=== PATIENT | female | born 1940 | race Caucasian/White ===

== ENCOUNTER → 2017-07-10 07:42 | Day surgery (SDC) | payer MEDICARE, OTHER, SELFPAY ==
[2017-07-07 09:23] VITALS: BMI 32.5
--- NOTE | 2017-07-10 09:51 | CL.IE_ITS ---
Patient: ZAHRA GRESHAM Study Date: 07/10/2017 Performing: Manish Rowland MD : 1940 Age: 77 Gender: female PROCEDURES PERFORMED [id number] OF LOOP RECORDER INDICATIONS Cryptogenic stroke PROCEDURE DETAILS The patient was brought to the Catheterization Lab in the postabsorptive nonsedated state. Informed consent was obtained prior to the procedure. . The patient tolerated the procedure well. Estimated Blood Loss: 0 ml's IMPLANTED / EX-PLANTED DEVICES IMPLANTED DEVICE(S): ICM Reveal LINQ - Millinery Salesperson: [employer], Model # [id number] Serial # [id number] DEVICE PARAMETERS CONCLUSIONS / RECOMMENDATIONS Device Conclusions: Successful implantation of a patient activated loop recorder. Device Recommendations: Follow up with Primary Care Physician PROCEDURE MEDICATIONS Versed 1 mg IV Oxygen: 2 L/min via nasal cannula Antibiotic given in appropriate timeframe. Ancef 1 Gm IV @ 07/10/2017 09:23:16 Signed By Manish Rowland MD On 07/10/2017 09:50:45 Manish Rowland MD
== END ==
PROVIDERS: Family Provider Internal Medicine; PCP Internal Medicine; Visit Provider Internal Medicine Cardiovascular Disease
DX: Z86.73 Personal history of transient ischemic attack (TIA), and cerebral infarction without residual deficits (principal); I10 Essential (primary) hypertension; E78.5 Hyperlipidemia, unspecified; Z79.84 Long term (current) use of oral hypoglycemic drugs; Z79.899 Other long term (current) drug therapy
CPT/HCPCS: 33282; 99152; J7040

== ENCOUNTER → 2017-11-30 09:53 | Outpatient (CLI) | payer MEDICARE, OTHER, SELFPAY ==
--- NOTE | 2017-11-30 09:58 | CDU_ITS ---
Reason For Study: Carotid stenosis Rt. Velocities/BP Lt. Velocities/BP Prox CCA 68.6/12.3 cm/sec. Prox CCA 59.2/12.3 cm/sec. Mid CCA 56.9/10.6 cm/sec. Mid CCA 57.5/13.5 cm/sec. Dist CCA 49.2/10.0 cm/sec. Dist CCA 52.2/12.3 cm/sec. Prox ICA 39.4/10.5 cm/sec. Prox ICA 53.4/15.8 cm/sec. Mid ICA 87.9/21.1 cm/sec. Mid ICA 65.1/17.6 cm/sec. Dist ICA 72.2/17.4 cm/sec. Dist ICA 57.2/15.0 cm/sec. Rt. ICA/CCA = 1.5. Lt. ICA/CCA = 1.1. Prox ECA 72.1/8.8 cm/sec. Prox ECA 63.9/8.2 cm/sec. Rt. Vert. 31.7/0.0 cm/sec. Lt. Vert. 30.6/8.3 cm/sec. Right Extracranial There is no significant atherosclerotic plaque noted in the right common carotid artery. There is heterogeneous, irregular atherosclerotic plaque noted in the right internal carotid artery. There is heterogeneous, irregular atherosclerotic plaque noted in the right external carotid artery. Antegrade flow is noted in the right vertebral artery. Left Extracranial There is intimal thickening but no significant atherosclerotic plaque noted in the left common carotid artery. There is intimal thickening but no significant atherosclerotic plaque noted in the left internal carotid artery. There is intimal thickening but no significant atherosclerotic plaque noted in the left external carotid artery. Antegrade flow is noted in the left vertebral artery. Procedure Carotid Duplex [id number]. Exam performed in department. Interpretation Summary Mild (<50%) stenosis right extracranial internal carotid. Mild (<50%) stenosis left extracranial internal carotid. Flow within the vertebral arteries is antegrade bilaterally. Ordering Physician: Sary Schmitt Referring Physician: Sary Schmitt Performed By: Isi Montano RVT
== END ==
PROVIDERS: Family Provider Internal Medicine; PCP Internal Medicine; Visit Provider Internal Medicine
DX: I65.23 Occlusion and stenosis of bilateral carotid arteries (principal)
CPT/HCPCS: 93880

== ENCOUNTER → 2018-04-27 14:27 | Outpatient (CLI) | payer MEDICARE, OTHER, SELFPAY ==
--- NOTE | 2018-04-27 14:31 | BI_ITS ---
MAMMOGRAPHY - BILATERAL SCREENING REASON FOR EXAM: Female, 77 years old. Routine annual screening examination. PERTINENT HISTORY: Sister with breast cancer. Grandmother with breast cancer. TECHNIQUE: Digital bilateral breast cezar (3D mammographic acquisition) in the CC and MLO projections. 2-D mediolateral oblique (MLO) and craniocaudad (CC) views of both breasts were obtained. CAD: Full Field Digital Mammography with Computer Added Detection was performed. COMPARISON: Comparison is made with prior study dated April 04, 2017 and December 31, 2015. FINDINGS: Breast Composition: The breasts are almost entirely fatty. There are no dominant masses or suspicious calcifications. Stable bilateral secretory calcifications. Stable bilateral small axillary lymph nodes. No other significant abnormalities are identified. There has been no significant change since the prior study. BI/SCREENING MAMM (CAD), BILAT IMPRESSION: Stable bilateral screening mammogram. Yearly follow-up mammogram recommended. (A) ASSESSMENT CATEGORY: BIRADS Category 2: Benign. A letter regarding these results will be sent to the patient by the facility within 30 days. Approximately 10% of breast cancers are not detected by mammography. A normal mammogram should not delay biopsy of a clinically suspicious abnormality. [id number] Electronically Signed: Cassius Cervantes MD at 13:50 EST Tel [phone], Service support ,
== END ==
PROVIDERS: Family Provider Internal Medicine; PCP Internal Medicine; Referring Provider Internal Medicine; Visit Provider Internal Medicine
DX: Z12.31 Encounter for screening mammogram for malignant neoplasm of breast (principal)
CPT/HCPCS: 77063; 77067

== ENCOUNTER → 2018-07-26 12:39 | Outpatient (CLI) | payer MEDICARE, OTHER, SELFPAY ==
--- NOTE | 2018-07-26 12:45 | BD_ITS ---
STUDY: DUAL ENERGY X-RAY ABSORPTIOMETRY / DXA REASON FOR EXAM: Female, 78 years old. The patient is postmenopausal. Loss of height. TECHNIQUE: Bone Mineral Density (BMD) measurements of lumbar spine and bilateral hips were obtained. COMPARISON: Comparison is made with prior study dated July 05, 2016. FINDINGS: Lumbar Spine (L1-L4): g/cm2 (1.283) / T-score (0.9) / Z-score (2.8) Findings are suggestive of normal bone density with a low fracture risk. Left Femur Total: g/cm2 (0.979) / T-score (-0.2) / Z-score (1.8) Left Femoral Neck: g/cm2 (0.820) / T-score (-1.6) / Z-score (0.6) Right Femur Total: g/cm2 (0.922) / T-score (-0.7) / Z-score (1.3) Right Femoral Neck: g/cm2 (0.7-0) / T-score (-2.3) / Z-score (-0.1) The T-Scores on the most recent prior examination were: Lumbar Spine (L1-L4): There has been improvement of bone density since the previous examination. Left Femur Total: which represents an improvement of 1.9%. Right Femur Total: which represents a worsening of 5.3%. BD/Dexa Bone Density Study IMPRESSION: The patient is considered osteopenic as outlined below according to World [employer] Organization (WHO) criteria with a moderate fracture risk. There has been improvement of bone density since the previous examination. Reference Information: The T-score is the number of standard deviations above or below the standard which is normal for young adults at their peak bone mineral density. The World Health Organization (WHO) interprets the T-scores as follows: Above -1 Normal bone density Between -1 and -2.5 Osteopenia Equal to / or below -2.5 Osteoporosis As a practical clinical guideline, osteopenia may be graded as follows: Mild -1 through -1.5 Moderate -1.6 through -2.0 Severe -2.1 through -2.4 The Z-score is the number of standard deviations above or below age-matched controls. A Z-score of less than -1.5 would be considered abnormal. References: 1. NIH Osteoporosis and Related Bone Diseases http://www.osteo.org 2. International Society for Clinical Densitometry http://www.iscd.org 3. National Osteoporosis Foundation http://www.nof.org Electronically Signed: Cassius Cervantes MD at 8:24 EST , Service support ,
--- NOTE | 2018-07-26 13:00 | RAD_ITS ---
STUDY: X-RAY - LEFT SHOULDER REASON FOR EXAM: Female, 78 years old. Chronic pain, no known injury TECHNIQUE: 4 view(s) of the shoulder. COMPARISON: None. FINDINGS: The bones are osteopenic. Normal glenohumeral articulation. Normal acromioclavicular joint. Normal acromion. Normal humeral head and visualized proximal humerus. The soft tissue structures are unremarkable. Normal visualized pulmonary apex. RAD/Shoulder min 2 Views IMPRESSION: Generalized osteopenia. The study is otherwise unremarkable. Electronically Signed: Garett Blanco MD at 23:58 EST , Service support ,
== END ==
PROVIDERS: Family Provider Internal Medicine; PCP Internal Medicine; Referring Provider Internal Medicine; Visit Provider Internal Medicine
DX: Z78.0 Asymptomatic menopausal state (principal)
CPT/HCPCS: 73030; 77080

== ENCOUNTER → 2018-12-07 | Outpatient (CLI) | payer MEDICARE, OTHER, SELFPAY ==
[2018-09-19 13:20] VITALS: BMI 32.3
--- NOTE | 2018-12-07 12:57 | CDU_ITS ---
Reason For Study: Carotid stenosis Rt. Velocities/BP Lt. Velocities/BP Prox CCA 64.3/10.8 cm/sec. Prox CCA 43.6/9.5 cm/sec. Mid CCA 48.6/13.4 cm/sec. Mid CCA 50/10.2 cm/sec. Dist CCA 45.4/9.1 cm/sec. Dist CCA 39.4/10.2 cm/sec. Prox ICA 47.6/11.3 cm/sec. Prox ICA 40.8/11.6 cm/sec. Mid ICA 60.8/15.7 cm/sec. Mid ICA 43.6/13.7 cm/sec. Dist ICA 78.3/25.6 cm/sec. Dist ICA 67.1/24.4 cm/sec. Rt. ICA/CCA = 1.6. Lt. ICA/CCA = 1.5. Prox ECA 59.7/8 cm/sec. Prox ECA 59.3/5.2 cm/sec. Rt. Vert. 28.9 cm/sec. Lt. Vert. 42.2/12.3 cm/sec. Right Extracranial There is homogeneous, smooth atherosclerotic plaque noted in the right common carotid artery. There is heterogeneous, irregular atherosclerotic plaque noted in the right internal carotid artery. There is heterogeneous, irregular atherosclerotic plaque noted in the right external carotid artery. Antegrade flow is noted in the right vertebral artery. Left Extracranial There is homogeneous, smooth atherosclerotic plaque noted in the left common carotid artery. There is intimal thickening but no significant atherosclerotic plaque noted in the left internal carotid artery. There is intimal thickening but no significant atherosclerotic plaque noted in the left external carotid artery. Antegrade flow is noted in the left vertebral artery. Procedure Carotid Duplex [id number]. Exam performed in department. Interpretation Summary Mild (<50%) stenosis right extracranial internal carotid. No significant atherosclerotic plaque or stenosis noted in the left internal carotid artery. Flow within the vertebral arteries is antegrade bilaterally. Ordering Physician: Sary Schmitt Referring Physician: Sary Schmitt Performed By: Deloris Delvalle RVT
== END | disposition home or self-care (01) ==
LOC: CVS 12:54
PROVIDERS: Family Provider Internal Medicine; PCP Internal Medicine; Referring Provider Internal Medicine; Visit Provider Internal Medicine
DX: I65.23 Occlusion and stenosis of bilateral carotid arteries (principal)
CPT/HCPCS: 93880

== ENCOUNTER → 2019-02-14 | Outpatient (CLI) | payer MEDICARE, OTHER, SELFPAY ==
[2018-09-19 13:20] VITALS: BMI 32.3
--- NOTE | 2019-02-14 12:33 | RAD_ITS ---
STUDY: X-RAY - RIGHT SHOULDER REASON FOR EXAM: Female, 78 years old. Pain. No known injury. TECHNIQUE: 3 view(s) of the shoulder. COMPARISON: None. FINDINGS: No visible fracture. No osseous destruction. Alignment anatomic. Mild degenerative changes. Soft tissues with no acute findings. Atherosclerosis. RAD/Shoulder min 2 Views IMPRESSION: No acute osseous abnormality. Mild degenerative changes. Electronically Signed: Garett Shelton, at 3:34 EDT Tel , Service support ,
== END | disposition home or self-care (01) ==
LOC: HPRAD 12:22
PROVIDERS: Family Provider Internal Medicine; PCP Internal Medicine; Referring Provider Internal Medicine; Visit Provider Internal Medicine
DX: M25.511 Pain in right shoulder (principal)
CPT/HCPCS: 73030

== ENCOUNTER → 2019-03-15 | Outpatient (CLI) | payer MEDICARE, OTHER, SELFPAY ==
[2018-09-19 13:20] VITALS: BMI 32.3
--- NOTE | 2019-03-15 13:00 | MRI_ITS ---
STUDY: MRI BRAIN WITH AND WITHOUT CONTRAST REASON FOR EXAM: Female, 78 years old. The patient presents with a history of dizziness and headaches x2 months with a history of a prior stroke. TECHNIQUE: Standardized multiplanar fat and water weighted pulse sequences were obtained. IV Dotarem 15 was administered for the contrast portion of the examination. COMPARISON: MRI BRAIN-November 10, 2016 FINDINGS: There is mild cerebral atrophy with widening of the extra-axial spaces and ventricular dilatation, unchanged as compared the prior examination of November 10, 2016. There are multiple white matter hyperintensities, distributed throughout the deep white matter tracts of the cerebral hemispheres, consistent with moderate chronic white matter ischemic changes, unchanged compared the prior examination of November 10, 2016. There is no evidence for recent intracranial ischemia or other cause of cytotoxic edema on diffusion weighted imaging (DWI). Normal T2* images of the brain without demonstrated susceptibility artifact. There is no demonstrated hemosiderin stain. There are prominent perivascular spaces (PVS) involving the basal ganglia. There is re-demonstration of a remote lacunar infarction left thalamus (axial T2 series 5, image 15). There is no extra-axial fluid accumulation. Normal flow voids within the major intracranial circulation suggesting patency by spin echo criteria. Normal venous enhancement. There is no enhancing intra-axial or extra-axial abnormality. Normal sella turcica, pituitary gland, infundibular stalk, optic chiasm and hypothalamus. Normal tectal plate and pineal gland. Normal midbrain, duong and medulla. There is encephalomalacia of the left cerebellar hemisphere consistent with a remote infarctions, unchanged as compared the prior examination. Normal basal cisterns. Normal bilateral temporal bones. Normal bilateral internal auditory canals. Remote lacunar infarction left thalamus. There are bilateral ocular lens implants with otherwise normal intraorbital contents. Normal visualized paranasal sinuses. Normal calvarium and skull base. Normal visualized soft tissue structures. Normal visualized upper cervical spine. MRI/Brain W/WO Contrast IMPRESSION: 1. Involutional changes of the brain, as described above. 2. No acute or evolving ischemic process. 3. Remote lacunar infarction left thalamus. 4. Cephalization left cerebellar hemisphere consistent with a remote infarction, unchanged as compared the prior examination of November 10, 2016. 5. Status post bilateral ocular lens implants. Electronically Signed: Javon Torres DO at 15:44 EDT Tel , Service support ,
[2019-03-15 13:10] LABS: CREATININE FINGERSTICK 1.3 mg/dL (0.55-1.02)
== END | disposition home or self-care (01) ==
LOC: MRI 12:06
PROVIDERS: Family Provider Internal Medicine; PCP Internal Medicine; Referring Provider Internal Medicine; Visit Provider Internal Medicine
DX: R42 Dizziness and giddiness (principal)
CPT/HCPCS: 70553; A9575

== ENCOUNTER 2019-03-21 13:30 | Outpatient (RCR) | payer MEDICARE, OTHER, SELFPAY ==
[2018-09-19 13:20] VITALS: BMI 32.3
--- NOTE | 2019-02-22 15:25 | HP.PTEVAL_ITS ---
Patient's Visit Information ZAHRA GRESHAM is a 78 year old F referred to Physical Therapy by Jes Diaz MD with a diagnosis of R shoulder pain. Date of Evaluation: 02/22/19 Physical Therapist: Nadeem Hodges, REGGIE, OCS, CSCS - Visit Plan Frequency: 1x/Week Duration: 2-4 Weeks Plan: weekly x 2-4 weeks to progress HEP, next session to phase 3 strengthening via HEP. - Subjective Findings: R shoulder pain. X ray showed OA. It was hurting very bad and had been for 3 weeks insidiously. Unknown reason. Pain is down upper right arm. Was hard to lift and tender. Reaching behind was hard. Always had slight strain in R UE off and on. Trouble hooking bra intermittently but then worse. This was more sever and did not clear up. Has had tingling and numbness in R arm for years possibly carpal tunnel. She did get injection from doctor last week and it did take, after 4 days, the upper arm pain away. It helped 100%. Sleeping now is Ok since injection. Did sleep in chair several nights when it was hurting. No other treatments, had x ray. Is R handed. Not employed. Spends day taking care of 11 month old baby and 5 yo and can do those now although it was hard to lift before injection. Basic ADLs OK now. - Pain R shoulder Pain Intensity (Out of 10): 0 Pain Intensity Range: 0, 2 Comment: not bad lately. - Objective Posture is forward scap adn R depressed scap vs L. Tightness evident in pecs. Tender to touch R supraspinatus and really joint surface anterior adn posterior of g-h joint. Shoulder AROM is symmetrical except end range R shoulder flexion slightly limited adn not painful. Rotations internal and external are symmetrical and without pain today. reflexes 2/3 bi and tri B. Sensation UE WNL to gross light touch today. Strength 3+/5 in B shoulders , elbows and wrists without pain today. - HK, - neer, - ext rotation lag,. Neck aROM symmetrical and withotu pain today. Scap ROM fair with defictis B in retraction and depression. - Goals Goal 1:: I appropr HEP to minimize future problems Goal Time Frame: 2-4 Weeks - Rehabilitation Potential Physical Therapy Diagnosis: R shoulder pain likely arthritic in nature, resolved Rehabilitation Potential: Fair - Anticipated Interventions Patient/Client Instruction: Educate patient on: Condition, Plan of Care For the Purpose of:: To decrease pain, To increase tolerance to activity/condition/position, To improve health and function Therapeutic Exercise to Include: Strength training, Flexibilty training For the Purpose of:: To increase tolerance to activity/condition/position, To improve health and function Thank you for the opportunity to evaluate your patient. For Medicare and Medicare HMO plans, please review the plan of care and approve it. It will need to be FAXED BACK to us at [phone] for Medicare purposes. For Medicare only, by signing this I certify the plan of care. Please let me know if there are questions or concerns regarding this plan of care. Physician Signature: Date:
--- NOTE | 2019-03-21 13:44 | HP.PTDCSUM ---
HP - PT D/C Summary It has been my pleasure to treat ZAHRA GRESHAM under orders from Jes Diaz MD, for the diagnosis of R shoulder pain for a total of 3 visit(s). Discharge Date: 03/21/19 Please see the following information for a summary of their discharge status. - Subjective Subjective: I am doing the ex but not as often as I should. Shoulder is not causing any problem. Not avoiding any activities due to shoulder. - Pain R shoulder Pain Intensity (Out of 10): 0 - Overall Improvement % Improvement: 99 - Objective Objective/Function: full aROM B shoulders today without pain. Strength in er/ir/flex/abd symmetrical adn without pain today. Overall doing well and I with HEP when compliant. - Goals Goal 1:: I appropr HEP to minimize future problems Goal Progress: Goal Met - Plan Plan: d/c - D/C Information Discharge Comments: Pt doing well adn I with HEP and will continue I. If there are questions or concerns regarding this patient's physical therapy, please feel free to call me at [phone]. Thank you for the referral of this patient. Sincerely, Nadeem Hodges, DPT, OCS, CSCS
== END 2019-03-21 19:00 | disposition home or self-care (01) ==
LOC: PT 13:30
PROVIDERS: Family Provider Internal Medicine; PCP Internal Medicine; Referring Provider Internal Medicine; Visit Provider Internal Medicine
DX: M25.511 Pain in right shoulder (principal)
CPT/HCPCS: 97110; 97162; 97530

== ENCOUNTER → 2019-04-29 | Outpatient (CLI) | payer MEDICARE, OTHER, SELFPAY ==
[2018-09-19 13:20] VITALS: BMI 32.3
--- NOTE | 2019-04-29 12:04 | BI_ITS ---
MAMMOGRAPHY - BILATERAL SCREENING REASON FOR EXAM: Female, 78 years old. Routine annual screening examination. PERTINENT HISTORY: Sister with breast cancer. Grandmother with breast cancer. TECHNIQUE: Digital bilateral breast rashaad (3D mammographic acquisition) in the CC and MLO projections. 2-D mediolateral oblique (MLO) and craniocaudad (CC) views of both breasts were obtained. CAD: Full Field Digital Mammography with Computer Added Detection was performed. COMPARISON: Comparison is made with prior study dated April 27, 2018 and April 04, 2017. FINDINGS: Breast Composition: The breasts are almost entirely fatty. There are no dominant masses or suspicious calcifications. Stable secretory calcifications in both breasts. Stable small bilateral benign-appearing axillary lymph nodes. A loop recorder device is once again seen along the inferior medial aspect of the left breast. No other significant abnormalities are identified. There has been no significant change since the prior study. BI/SCREEN MAMM (CAD) W/RASHAAD BILAT IMPRESSION: Stable bilateral screening mammogram. Yearly follow-up mammogram recommended. (A) ASSESSMENT CATEGORY: BIRADS Category 2: Benign. A letter regarding these results will be sent to the patient by the facility within 30 days. Approximately 10% of breast cancers are not detected by mammography. A normal mammogram should not delay biopsy of a clinically suspicious abnormality. [id number] Electronically Signed: Cassius Cervantes, at 14:31 EST , Service support ,
== END | disposition home or self-care (01) ==
LOC: OPBI 11:52
PROVIDERS: Family Provider Internal Medicine; PCP Internal Medicine; Referring Provider Internal Medicine; Visit Provider Internal Medicine
DX: Z12.31 Encounter for screening mammogram for malignant neoplasm of breast (principal)
CPT/HCPCS: 77063; 77067

== ENCOUNTER → 2019-10-16 13:40 | Outpatient (CLI) | payer MEDICARE, OTHER, SELFPAY ==
[2019-09-24 11:00] VITALS: BMI 30.9
--- NOTE | 2019-10-16 13:41 | ECHOCS_ITS ---
Reason For Study: ARRHYTHMIA Procedure This was a 2D Doppler, Color Flow transthoracic echocardiogram. The study was technically difficult. Contrast injection was performed. Exam performed in department. Left Ventricle Normal LV size. Left ventricular systolic function is normal. The estimated ejection fraction is 65 %. Diastolic function is indeterminate. No regional wall motion abnormalities noted. Right Ventricle Normal RV size. Normal systolic function. Atria The left atrium is severely enlarged. Normal right atrium. No doppler evidence for ASD. Mitral Valve There is severe mitral annular calcification. Extension of the mitral annular calcification onto the posterior mitral valve leaflet. The mitral papillary muscle appears thickened and/or calcified. Mild (1+) mitral valve insufficiency. Tricuspid Valve Normal tricuspid valve. Mild to moderate (1-2+) eccentric tricuspid valve insufficiency. Right ventricular systolic pressure estimated to be 33 mmHg. Aortic Valve Trisinus/trileaflet aortic valve. Mild focal aortic valve calcification. Pulmonic Valve Normal pulmonic valve. Mild (1+) pulmonic valve insufficiency. Great Vessels Normal sized aortic root. Calcified aortic root. Pericardium/Pleural No pericardial effusion. Medication 22 gauge I.V. with prn adaptor inserted into right arm. Diluted definity 2.0ml given slow IV push to enhance endocardial definition. MMode/2D Measurements & Calculations LVIDd: 3.3 cm IVSd: 0.85 cm Ao root diam: 2.6 cm LVIDs: 2.3 cm LVPWd: 1.0 cm RVDd: 3.2 cm FS: 31.4 % LAV(MOD-bp): 39.8 ml LVAd ap4: 18.8 cm2 SV(MOD-sp4): 33.6 ml LAV(MOD-bp) Indexed: 24.5 ml/m2 EDV(MOD-sp4): 49.5 ml LAV(MOD-sp2): 37.8 ml EDV(sp4-el): 51.8 ml LAV(MOD-sp4): 39.1 ml LVAs ap4: 8.7 cm2 ESV(MOD-sp4): 15.8 ml ESV(sp4-el): 15.0 ml EF(MOD-sp4): 68.0 % EF(sp4-el): 71.1 % SV(sp4-el): 36.8 ml LA A4 area: 15.8 cm2 LA dimension(2D): 3.1 cm RA A4 area: 12.3 cm2 Doppler Measurements & Calculations MV E max benito: 118.6 cm/sec Lat Peak E' Benito: 4.1 cm/sec Med Peak E' Benito: 4.5 cm/sec MV A max benito: 166.3 cm/sec E/E' lat: 28.7 E/E' med: 26.3 MV E/A: 0.71 MV V2 max: 169.1 cm/sec Ao V2 max: 128.2 cm/sec LV V1 max: 102.7 cm/sec MV max P.4 mmHg Ao max P.6 mmHg LV V1 max P.2 mmHg MV V2 mean: 88.0 cm/sec MV mean P.7 mmHg MV V2 VTI: 41.0 cm PA V2 max: 82.2 cm/sec TR max benito: 274.8 cm/sec MV P1/2t-pr_phl: 89.7 msec TR max P.2 mmHg Interpretation Summary The study was technically difficult. Contrast injection was performed. Left ventricular systolic function is normal. The estimated ejection fraction is 65 %. The left atrium is severely enlarged. There is severe mitral annular calcification. Extension of the mitral annular calcification onto the posterior mitral valve leaflet. The mitral papillary muscle appears thickened and/or calcified. Mild (1+) mitral valve insufficiency. Mild to moderate (1-2+) eccentric tricuspid valve insufficiency. Mild focal aortic valve calcification. Mild (1+) pulmonic valve insufficiency. Calcified aortic root. Right ventricular systolic pressure estimated to be 33 mmHg. Diastolic function is indeterminate. Ordering Physician: Michael Tabares Referring Physician: ROBERT VELAZQUEZ Performed By: Omaira Soriano, PRATEEKCS, RVT
== END ==
PROVIDERS: PCP Internal Medicine; Referring Provider Internal Medicine Cardiovascular Disease; Visit Provider Internal Medicine Cardiovascular Disease
DX: G45.9 Transient cerebral ischemic attack, unspecified (principal); I47.1 Supraventricular tachycardia; I34.0 Nonrheumatic mitral (valve) insufficiency; I36.1 Nonrheumatic tricuspid (valve) insufficiency; E78.00 Pure hypercholesterolemia, unspecified; I10 Essential (primary) hypertension; Z95.818 Presence of other cardiac implants and grafts
CPT/HCPCS: 93306; Q9957; A4216; C8929

== ENCOUNTER → 2019-12-25 12:49 | Outpatient (CLI) | payer MEDICARE, OTHER, SELFPAY ==
[2019-11-11 13:08] VITALS: BMI 32.0
--- NOTE | 2019-12-25 12:58 | CDU_ITS ---
Reason For Study: Carotid stenosis Rt. Velocities/BP Lt. Velocities/BP Prox CCA 69.5/13.5 cm/sec. Prox CCA 68.3/14.5 cm/sec. Mid CCA 53.9/16 cm/sec. Mid CCA 52.2/12.6 cm/sec. Dist CCA 45.4/11.3 cm/sec. Dist CCA 48.5/11.6 cm/sec. Prox ICA 57.5/13.5 cm/sec. Prox ICA 74.9/14.5 cm/sec. Mid ICA 78.4/30 cm/sec. Mid ICA 50.4/20.1 cm/sec. Dist ICA 88.8/28.6 cm/sec. Dist ICA 77.2/30 cm/sec. Rt. ICA/CCA = 1.6. Lt. ICA/CCA = 1.5. Prox ECA 68.4 cm/sec. Prox ECA 72.1/12.6 cm/sec. Rt. Vert. 25.8 cm/sec. Lt. Vert. 27.3/12.3 cm/sec. Right Extracranial There is homogeneous, smooth atherosclerotic plaque noted in the right common carotid artery. There is heterogeneous, irregular atherosclerotic plaque noted in the right internal carotid artery. There is heterogeneous, irregular atherosclerotic plaque noted in the right external carotid artery. Antegrade flow is noted in the right vertebral artery. High resistive waveform noted in the right vertebral artery. Left Extracranial There is homogeneous, smooth atherosclerotic plaque noted in the left common carotid artery. There is heterogeneous, irregular atherosclerotic plaque noted in the left internal carotid artery. There is intimal thickening but no significant atherosclerotic plaque noted in the left external carotid artery. Antegrade flow is noted in the left vertebral artery. Procedure Carotid Duplex [id number]. Exam performed in department. Interpretation Summary Mild (<50%) stenosis right extracranial internal carotid. Mild (<50%) stenosis left extracranial internal carotid. Flow within the vertebral arteries is antegrade bilaterally. A high-resistance waveform is noted in the right vertebral artery, which may be indicative of stenosis or occlusion more distally. Clinical correlation is advised. Ordering Physician: Sary Schmitt Referring Physician: Sary Schmitt Performed By: Deloris Delvalle RVT
== END ==
PROVIDERS: PCP Internal Medicine; Referring Provider Internal Medicine; Visit Provider Internal Medicine
DX: I65.23 Occlusion and stenosis of bilateral carotid arteries (principal)
CPT/HCPCS: 93880

== ENCOUNTER → 2020-01-21 15:25 | Outpatient (CLI) | payer MEDICARE, OTHER, SELFPAY ==
[2019-11-11 13:08] VITALS: BMI 32.0
--- NOTE | 2020-01-21 15:26 | CT_ITS ---
STUDY: CTA NECK WITH CONTRAST REASON FOR EXAM: Female, 79 years old. ABN DOPPLER ULTRASOUND, LIGHTHEADED, HX-EMBOLYTIC STROKE, HTN,DB RADIATION DOSAGE (If Supplied By Facility): CTDIvol = ( 16.57 ) mGy, DLP = ( 492.01 ) mGycm TECHNIQUE: CT angiography with multi-detector data acquisition was performed from the aortic arch to the skull base following intravenous administration of 100ML ISOVUE 370. MIP images were reconstructed from the axial data set. Post-processing of the angiographic images was performed, with multiplanar reformation and 3D reconstruction. Individualized dose optimization techniques were used for this CT. COMPARISON: Carotid ultrasound 12/25/2019. FINDINGS: AORTIC ARCH: Normal visualized aortic arch. Normal origins of the brachiocephalic, left common carotid, and left subclavian arteries. RIGHT CAROTID ARTERIES: Normal right common carotid artery (CCA). There is mild atherosclerotic plaque formation with minimal narrowing of the right carotid bulb. There is mild atherosclerotic plaque formation of the origin of the right internal carotid artery with less than 50% cross sectional diameter stenosis. Normal visualized cervical portion of the right internal carotid artery. Normal origin of the right external carotid artery (ECA). LEFT CAROTID ARTERIES: Normal left common carotid artery (CCA). Normal left common carotid bulb. Normal origin of the left internal carotid (ICA) artery without a hemodynamically significant stenosis. Normal visualized cervical portion of the left internal carotid artery. Normal origin of the left external carotid artery (ECA). VERTEBRAL ARTERIES: There is enhancement within the bilateral vertebral arteries with a small right vertebral artery, and a dominant left vertebral artery. CT/CTA Neck W/WO Contrast IMPRESSION: Unremarkable for age. No occlusions. No evidence for hemodynamically significant stenosis. Electronically Signed: Oliver Martinez MD at 20:12 EDT , Service support ,
[2020-01-21 15:41] LABS: CREATININE FINGERSTICK 1.5 mg/dL (0.55-1.02)
== END ==
PROVIDERS: PCP Internal Medicine; Referring Provider Internal Medicine; Visit Provider Internal Medicine
DX: R93.89 Abnormal findings on diagnostic imaging of other specified body structures (principal)
CPT/HCPCS: 70498; Q9967

== ENCOUNTER → 2020-04-30 14:29 | Outpatient (CLI) | payer MEDICARE, OTHER, SELFPAY ==
[2019-11-11 13:08] VITALS: BMI 32.0
--- NOTE | 2020-04-30 14:32 | BI_ITS ---
MAMMOGRAPHY - BILATERAL SCREENING REASON FOR EXAM: Female, 79 years old. Routine annual screening examination. PERTINENT HISTORY: Sister with breast cancer. Grandmother with breast cancer. TECHNIQUE: Digital bilateral breast rashaad (3D mammographic acquisition) in the CC and MLO projections. 2-D mediolateral oblique (MLO) and craniocaudad (CC) views of both breasts were obtained. CAD: Full Field Digital Mammography with Computer Added Detection was performed. COMPARISON: Comparison is made with prior study dated 04/29/2019 and 04/27/2018. FINDINGS: Breast Composition: The breasts are almost entirely fatty. There are no dominant masses or suspicious calcifications. Stable secretory calcifications in both breasts. Stable small benign appearing bilateral axillary nodes. No other significant abnormalities are identified. There has been no significant change since the prior study. BI/SCREEN MAMM (CAD) W/RASHAAD BILAT IMPRESSION: Stable bilateral screening mammogram. Yearly follow-up mammogram recommended. (A) ASSESSMENT CATEGORY: BIRADS Category 2: Benign. A letter regarding these results will be sent to the patient by the facility within 30 days. Approximately 10% of breast cancers are not detected by mammography. A normal mammogram should not delay biopsy of a clinically suspicious abnormality. [id number] Electronically Signed: Cassius Cervantes, at 15:32 EST , Service support ,
== END ==
PROVIDERS: PCP Internal Medicine; Referring Provider Internal Medicine; Visit Provider Internal Medicine
DX: Z12.31 Encounter for screening mammogram for malignant neoplasm of breast (principal); M25.551 Pain in right hip
CPT/HCPCS: 77063; 77067; 97110

== ENCOUNTER 2020-05-21 14:00 | Outpatient (RCR) | payer MEDICARE, OTHER, SELFPAY ==
[2019-11-11 13:08] VITALS: BMI 32.0
--- NOTE | 2020-04-23 13:50 | HP.PTEVAL_ITS ---
Patient's Visit Information ZAHRA GRESHAM is a 79 year old F referred to Physical Therapy by Dr. Sary Schmitt DO with a diagnosis of Left Hip Pain. Date of Evaluation: 04/23/20 Physical Therapist: Mariluz Zafar DPT - Visit Plan Frequency: 2x /Week Duration: 4 Weeks Plan: Focus on core strength/stabilization with functional mobility- PACEMAKER - Subjective Left hip pain- that bothers her all the time- aggravated when she worked the [employer] last week- she was standing in one spot for a long period of time. She ached all over- was still moving around- she is really bothered when she was standing making a casserole. By evening her whole left his was bothering her- it continued to get worse. On she would hardly move- very painful to do anything. She was having to use a cane to get to the bathroom. She sat on the couch and slept there for 2 nights. It has gradually gotten better and she back to most of her normal activities with modifications. But sleeping is not fun- she is having a hard time laying on either side- rolling side to side is the most difficult thing. Wakes her up due to pain. 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 Has not had recent x-rays. Dr. Schmitt did not suggest x-rays. Feels that she is back to 50% of the pain levels. Pain is located in the greater troch into the gluts and on the left lumbar spine- No radiating pain- describes sharp and shooting pains-no N/T. Does report lumbar spine pain when standing and bruno in the kitchen- goes and sits down and the next day she is good to go again. No x-rays on her lumbar spine. Agg:rolling over in bed, twisting back to wipe herself- is very careful of how she moves. Eases: rest. No loss or change in bowel or bladder. No buckling of the knee or concerns that she would fall to the floor. Does not exercise but she is active around her home- fully I prior to injury. PMHX/Meds: not taking Lisinopril since at the hospital last visit with Dr. Tabares. - Objective Posture: FH, RS- can correct but does not maintain. Gait: slightly antalgic- decreased stance on the left LE. Stairs: asc/desc 8 non recip with 1 HR. HR/TR: WNL. Sensation: WFL to gross touch bilateral. ROM: Lumbar: flexion: hands to ankle, extn: neutral, SB: pain with left, Rotation: pain with right, Hip WFL in all planes, Knee/Ankle: WNL. Strength:Core: poor, Hip: flexion:4/5, extn: 4+/5, IR/ER: 4-/5, Abd: 4/5, Add: 4/5, knee: 5/5, ankle: 5/5. Flex: HS: moderate, Gastroc: moderate. Special Test: Scour: positive, ALESHA: positive, LLD: negative - Goals Goal 1:: Patient will be I with HEP and progression Goal Time Frame: 4-6 Weeks Goal 2:: Patient will maintain proper posture t/o tx session to demo increased core s/s Goal Time Frame: 4-6 Weeks Goal 3:: Patient will report with 0/10 pain for 1 week Goal Time Frame: 4-6 Weeks - Rehabilitation Potential Physical Therapy Diagnosis: Patient presents with hypomobility- she has decreased ROM, strength, flex and muscular enduranc leading to poor posture and increased pain with ADl's. Rehabilitation Potential: Good - Anticipated Interventions Patient/Client Instruction: Educate patient on: Benefits of Fitness Program Therapeutic Exercise to Include: Strength training, Endurance training, Balance training, Agility training, Body mechanics, Postural training, Flexibilty training, Gait and locomotor training, Neuromotor development, Passive ROM, Active ROM, Dynamic Lumbar Stabilization, Scapular Strength/Stabilization For the Purpose of:: To improve muscle performance and motor function TENS: No Cryotherapy (ice pack, ice massage): Yes Thermo therapy (hot pack): Yes Ultrasound (thermal/non thermal): No Thank you for the opportunity to evaluate your patient. For Medicare and Medicare HMO plans, please review the plan of care and approve it. It will need to be FAXED BACK to us at [phone] for Medicare purposes. For Medicare only, by signing this I certify the plan of care. Please let me know if there are questions or concerns regarding this plan of care. Physician Signature: Date:
--- NOTE | 2020-05-21 16:00 | HP.PTDCSUM ---
It has been my pleasure to treat ZAHRA GRESHAM referred by Dr. Sary Schmitt DO, with the diagnosis of Left Hip Pain for a total of 7 visit(s). Discharge Date: Please see the following information for a summary of their discharge status. Subjective: Patient reports that her hip is a lot better since she started PT. She feels that she is back to her baseline prior to the episode. She always feels the pain- its more the arthritis. If she sits for a long time she then has to wait for a few minutes then can go. She did a lot of standing in the kitchen the past few days. She is back in her bed and can sleep on her side. But she does have pain with she rolls over in the AM- 100% back to normal. % Improvement: 100 Objective/Function: Posture: good sitting posture. Gait: no deviation noted. Stairs: asc/desc 8recip with 1 HR. HR/TR: WNL. Sensation: WFL to gross touch bilateral. ROM: Lumbar: flexion: hands to ankle, extn: neutral, SB: pain with left, Rotation: pain with right, Hip WFL in all planes, Knee/Ankle: WNL. Strength:Core: fair Hip: flexion:4+/5, extn: 4+/5, IR/ER: 4/5, Abd: 4+/5, Add: 4/5, knee: 5/5, ankle: 5/5. Flex: HS: moderate, Gastroc: moderate. Special Test: Scour: positive, ALESHA: positive, LLD: negative Goal 1:: Patient will be I with HEP and progression Goal Progress: Goal Met Goal 2:: Patient will maintain proper posture t/o tx session to demo increased core s/s Goal Progress: Progressing Goal 3:: Patient will report with 0/10 pain for 1 week Goal Progress: Progressing Plan: Discharge to I HEP- encourage to call if she has questions or concerns If there are questions or concerns regarding this patient's physical therapy, please feel free to call me at [phone]. Thank you for the referral of this patient. Sincerely, Mariluz Zafar DPT
== END 2020-05-21 19:00 | disposition home or self-care (01) ==
LOC: PT 14:00
PROVIDERS: PCP Internal Medicine; Referring Provider Internal Medicine; Visit Provider Internal Medicine
DX: M25.551 Pain in right hip (principal); M25.552 Pain in left hip
CPT/HCPCS: 97110; 97162; 97164

== ENCOUNTER → 2020-10-22 12:58 | Outpatient (CLI) | payer MEDICARE, OTHER, SELFPAY ==
[2019-11-11 13:08] VITALS: BMI 32.0
--- NOTE | 2020-10-22 13:02 | BD_ITS ---
STUDY: DUAL ENERGY X-RAY ABSORPTIOMETRY / DXA REASON FOR EXAM: Female, 80 years old. [id number]. The patient is postmenopausal. Loss of height. TECHNIQUE: Bone Mineral Density (BMD) measurements of lumbar spine and bilateral hips were obtained. COMPARISON: Comparison is made with prior study dated 05/12/2010. FINDINGS: Lumbar Spine (L1-L4): g/cm2 (1.330) / T-score (1.2) / Z-score (3.1) Findings are suggestive of normal bone density with a low fracture risk. Left Femur Total: g/cm2 (0.904) / T-score (-0.8) / Z-score (1.3) Left Femoral Neck: g/cm2 (0.751) / T-score (-2.1) / Z-score (0.2) Right Femur Total: g/cm2 (0.899) / T-score (-0.9) / Z-score (1.3) Right Femoral Neck: g/cm2 (0.736) / T-score (-2.2) / Z-score (0.1) The T-Scores on the most recent prior examination were: Lumbar Spine (L1-L4): There has been improvement of bone density since the previous examination. Left Femur Total: which represents a worsening of 7.7%. Right Femur Total: which represents a worsening of 2.5%. BD/Dexa Bone Density Study IMPRESSION: The patient is considered osteopenic as outlined below according to World [employer] Organization (WHO) criteria with a high fracture risk. There has been worsening of bone density since the previous examination. Reference Information: The T-score is the number of standard deviations above or below the standard which is normal for young adults at their peak bone mineral density. The World Health Organization (WHO) interprets the T-scores as follows: Above -1 Normal bone density Between -1 and -2.5 Osteopenia Equal to / or below -2.5 Osteoporosis As a practical clinical guideline, osteopenia may be graded as follows: Mild -1 through -1.5 Moderate -1.6 through -2.0 Severe -2.1 through -2.4 The Z-score is the number of standard deviations above or below age-matched controls. A Z-score of less than -1.5 would be considered abnormal. References: 1. NIH Osteoporosis and Related Bone Diseases www osteo.org 2. International Society for Clinical Densitometry www iscd.org 3. National Osteoporosis Foundation www nof.org Electronically Signed: Cassius Cervantes MD at 15:31 EDT , Service support ,
== END ==
PROVIDERS: PCP Internal Medicine; Referring Provider Internal Medicine; Visit Provider Internal Medicine
DX: Z78.0 Asymptomatic menopausal state (principal)
CPT/HCPCS: 77080

== ENCOUNTER → 2021-05-03 14:01 | Outpatient (CLI) | payer MEDICARE, OTHER, SELFPAY ==
--- NOTE | 2021-05-03 14:03 | BI_ITS ---
MAMMOGRAPHY - BILATERAL SCREENING 3-D TOMOSYNTHESIS REASON FOR EXAM: Female, 80 years old. SCREENING PERTINENT HISTORY: Sister and grandmother with breast cancer.. TECHNIQUE: 2-D mammograms and 3-D Tomosynthesis of the breast (s) were performed. CAD was performed. COMPARISON: 06/30/2019 FINDINGS: The breast composition is almost entirely fat. Scattered benign calcifications are seen. No dense spiculated masses or suspicious microcalcifications are identified. No architectural distortion is identified. There is no skin thickening or retraction. Stable bilateral subcentimeter axillary lymph nodes. There has been no significant change since the prior study. BI/SCRN MAMM (CAD)W/RASHAAD BILAT IMPRESSION: No mammographic signs of malignancy. Routine yearly mammograms recommended. ASSESSMENT CATEGORY: BIRADS Category 2: Benign. A letter regarding these results will be sent to the patient by the facility within 30 days. FOLLOW UP RECOMMENDATION: Yearly follow up mammogram recommended. (A) Approximately 10% of breast cancers are not detected by mammography. A normal mammogram should not delay biopsy of a clinically suspicious abnormality. Electronically Signed: Frank Erickson MD at 17:24 EST , Service support ,
== END ==
PROVIDERS: PCP Internal Medicine; Referring Provider Internal Medicine; Visit Provider Internal Medicine
DX: Z12.31 Encounter for screening mammogram for malignant neoplasm of breast (principal)
CPT/HCPCS: 77063; 77067

== ENCOUNTER → 2021-05-10 07:07 | Outpatient (CLI) | payer MEDICARE, OTHER, SELFPAY ==
--- NOTE | 2021-05-10 09:23 | STRESSREP ---
Stress Test Report Date: 05-10-2021 Procedure: Exercise tolerance test/imaging study Indications: Shortness of breath/dyspnea on exertion Consent: Per the patient Procedure: The patient exercised on a Yousuf protocol for 5 minutes completing Stage II and 2 minutes of Stage III achieving a peak heart rate of 133 bpm (97% predicted maximal heart rate) with a peak blood pressure 158/70 mmHg and a peak MET capacity of 7 METs. The baseline ECG demonstrated sinus rhythm; nonspecific T wave abnormality. The peak exercise ECG demonstrated somatic/motion artifact with no obvious ECG changes. [There were no cardiac dysrhythmias pretest, during exercise, or recovery]. The functional capacity was considered good. There was [no complaint of chest discomfort during exercise or recovery]. The examination was discontinued secondary to dyspnea. Impression: 1. Technically adequate (percent predicted maximal heart rate greater than 85%) exercise tolerance test 2. Peak exercise ECG with somatic/motion artifact with no obvious ECG changes 3. [There were no cardiac dysrhythmias pretest, during exercise, or recovery] 4. Nuclear images pending Myocardial perfusion imaging study: Technique: The patient was injected with 11.7 mCi of technetium 99m Cardiolite and subsequently rest SPECT Cardiolite nuclear imaging was obtained in the horizontal long, vertical long, and short axis views. The patient exercised on a Yousuf protocol for 5 minutes completing Stage II and 2 minutes of Stage III achieving a peak heart rate of 133 bpm (97% predicted maximal heart rate) with a peak blood pressure 158/70 mmHg and a peak MET capacity of 7 METs. The patient was injected with 33.1 mCi of technetium 99m Cardiolite and subsequently stress SPECT Cardiolite nuclear imaging was obtained in the horizontal long, vertical long, and short axis views. A gated Cardiolite study at peak stress was obtained. Interpretation: Rest and stress SPECT Cardiolite nuclear imaging status post realignment, normalization, and attenuation correction, demonstrates []. [There is end systolic thickening and brightening]. The gated Cardiolite study demonstrates [myocardial thickening and inward wall motion]. The reported LVEF is []%. Impression: 1. Rest and stress SPECT Cardiolite nuclear imaging demonstrate []. 2. The gated Cardiolite study reports an LVEF of []%. This note was generated with [employer] software. It may contain incorrect words, spelling, and punctuation that were not noted in checking the note before signing.
== END ==
PROVIDERS: PCP Internal Medicine; Referring Provider Internal Medicine; Visit Provider Internal Medicine
DX: R06.00 Dyspnea, unspecified (principal)
CPT/HCPCS: 78452; 93017; A9500; A4216

== ENCOUNTER 2021-06-14 13:00 | Outpatient (CLI) | payer MEDICARE, OTHER, SELFPAY ==
--- NOTE | 2021-06-14 13:16 | ECHOCS_ITS ---
Reason For Study: Murmur Procedure This was a 2D Doppler, Color Flow transthoracic echocardiogram. Techncially difficult due to patients body habitus. Contrast injection performed. The study was technically difficult. Contrast injection was performed. Exam performed in department. Left Ventricle Normal LV size. Left ventricular systolic function is hyperdynamic. The estimated ejection fraction is 75 %. There is evidence of diastolic dysfunction. No regional wall motion abnormalities noted. Right Ventricle Normal RV size. Normal systolic function. Atria The left atrium is severely enlarged. The right atrium is mildly enlarged. No doppler evidence for ASD. Mitral Valve There is severe mitral annular calcification. Extension of the mitral annular calcification onto the mitral valve leaflets. The mitral valve chordae are thickened and/or calcified. Mild (1+) mitral valve insufficiency. Tricuspid Valve Normal tricuspid valve. Mild to moderate (1-2+) eccentric tricuspid valve insufficiency. Right ventricular systolic pressure estimated to be 36 mmHg. Aortic Valve Trisinus/trileaflet aortic valve. Mild focal aortic valve calcification. Pulmonic Valve The pulmonic valve is not well visualized. Mild (1+) pulmonic valve insufficiency. Great Vessels The aortic root is not well visualized. Pericardium/Pleural No pericardial effusion. Medication 22 gauge I.V. with prn adaptor inserted into left arm. Diluted definity 3ml given slow IV push to enhance endocardial definition. MMode/2D Measurements & Calculations LVIDd: 3.2 cm IVSd: 1.1 cm LA dimension: 2.7 cm LVIDs: 2.5 cm LVPWd: 1.0 cm FS: 22.0 % LAV(MOD-bp): 62.0 ml LA A4 area: 20.2 cm2 RA A4 area: 16.9 cm2 LAV(MOD-bp) Indexed: 38.5 ml/m2 LAV(MOD-sp2): 58.4 ml LAV(MOD-sp4): 61.7 ml Time Measurements MV dec time: 0.30 sec Doppler Measurements & Calculations MV E max benito: 100.4 cm/sec Lat Peak E' Benito: 4.5 cm/sec Med Peak E' Benito: 3.1 cm/sec MV A max benito: 161.6 cm/sec E/E' lat: 22.2 E/E' med: 32.4 MV E/A: 0.62 MV V2 max: 160.8 cm/sec MV P1/2t max benito: 106.9 cm/sec Ao V2 max: 157.9 cm/sec MV max P.3 mmHg MV P1/2t: 98.8 msec Ao max P.0 mmHg MV V2 mean: 82.0 cm/sec MV dec slope: 317.0 cm/sec2 MV mean P.2 mmHg MV V2 VTI: 37.6 cm MVA(P1/2t): 2.2 cm2 LV V1 max: 123.6 cm/sec PA V2 max: 97.3 cm/sec PI end-d benito: 112.7 cm/sec LV V1 max P.1 mmHg TR max benito: 285.6 cm/sec TR max P.6 mmHg ECHO/Echo Complete W/ Contrast Interpretation Summary The study was technically difficult. Contrast injection was performed. Left ventricular systolic function is hyperdynamic. The estimated ejection fraction is 75 %. The left atrium is severely enlarged. The right atrium is mildly enlarged. There is severe mitral annular calcification. Extension of the mitral annular calcification onto the mitral valve leaflets. The mitral valve chordae are thickened and/or calcified. Mild (1+) mitral valve insufficiency. Mild to moderate (1-2+) eccentric tricuspid valve insufficiency. Mild focal aortic valve calcification. Mild (1+) pulmonic valve insufficiency. Right ventricular systolic pressure estimated to be 36 mmHg. There is evidence of diastolic dysfunction. Ordering Physician: Michael Tabares Referring Physician: Sary Schmitt Performed By: Rocky Polk RCS
== END 2021-06-14 23:59 | disposition short-term general hospital (02) ==
PROVIDERS: PCP Internal Medicine; Referring Provider Internal Medicine; Visit Provider Internal Medicine
DX: G45.9 Transient cerebral ischemic attack, unspecified (principal)
CPT/HCPCS: 93306; Q9957; A4216; C8929

== ENCOUNTER → 2022-01-11 | Outpatient (CLI) | payer MEDICARE, OTHER, SELFPAY ==
--- NOTE | 2022-01-11 12:43 | CDU_ITS ---
Reason For Study: carotid stenosis Rt. Velocities/BP Lt. Velocities/BP Prox CCA 73.4/10.8 cm/sec. Prox CCA 60.5/9.0 cm/sec. Mid CCA 50.9/10.2 cm/sec. Mid CCA 52.6/9.0 cm/sec. Dist CCA 50.9/10.2 cm/sec. Dist CCA 48.2/10.7 cm/sec. Prox ICA 54.2/12.4 cm/sec. Prox ICA 32.9/8.2 cm/sec. Mid ICA 60.8/14.6 cm/sec. Mid ICA 47.9/14.4 cm/sec. Dist ICA 97.0/31.1 cm/sec. Dist ICA 72.2/21.0 cm/sec. Rt. ICA/CCA = 1.9. Lt. ICA/CCA = 1.4. Prox ECA 84.9/9.1 cm/sec. Prox ECA 77.9/6.4 cm/sec. Rt. Vert. 26.4 cm/sec. Lt. Vert. 45.6/11.6 cm/sec. Right Extracranial There is homogeneous, smooth atherosclerotic plaque noted in the right common carotid artery. There is heterogeneous, irregular atherosclerotic plaque noted in the right internal carotid artery. There is heterogeneous, irregular atherosclerotic plaque noted in the right external carotid artery. Antegrade flow is noted in the right vertebral artery. High resistive waveform noted in the right vertebral artery. Left Extracranial There is homogeneous, smooth atherosclerotic plaque noted in the left common carotid artery. There is heterogeneous, irregular atherosclerotic plaque noted in the left internal carotid artery. There is intimal thickening but no significant atherosclerotic plaque noted in the left external carotid artery. Antegrade flow is noted in the left vertebral artery. Procedure Carotid Duplex [id number]. This is a Carotid Duplex examination using B-mode, color flow and specral Doppler. The exam was diagnostic. Exam performed in department. VL/Carotid Duplex Ultrasound Interpretation Summary Mild (<50%) stenosis right extracranial internal carotid. Mild (<50%) stenosis left extracranial internal carotid. The Left vertebral is patent and antegrade. The Right vertebral is patent and antegrade. Ordering Physician: Sary Schmitt Performed By: Catracho Patel RVT
== END | disposition home or self-care (01) ==
LOC: CVS 12:41
PROVIDERS: PCP Internal Medicine; Referring Provider Internal Medicine; Visit Provider Internal Medicine
DX: I65.23 Occlusion and stenosis of bilateral carotid arteries (principal)
CPT/HCPCS: 93880

== ENCOUNTER → 2022-03-23 | Outpatient (CLI) | payer MEDICARE, OTHER, SELFPAY ==
--- NOTE | 2022-03-23 16:29 | RAD_ITS ---
STUDY: X-RAY - LUMBAR SPINE REASON FOR EXAM: Female, 81 years old. lumbar radiculopathy -- lumbar radiculopathy TECHNIQUE: 3 view(s) of the lumbar spine were obtained. COMPARISON: None FINDINGS: Grade 1 spondylolisthesis L4-5 without evidence of spondylolisthesis. Moderate anterior osteophyte formation L1-L4 mild L4-S1. Moderate loss of disc space height L5-S1 and L1-L4 mild L4-5. Moderate bilateral facet arthropathy L5-S1. No evidence of spondylolysis. The soft tissue structures are unremarkable. RAD/L/S Spine Min 4 Views IMPRESSION: Degenerative changes as above. Electronically Signed: Ronald Faust MD, [place] at 9:12 EDT ,
== END | disposition home or self-care (01) ==
LOC: MTRAD 16:27
PROVIDERS: PCP Internal Medicine; Referring Provider Internal Medicine; Visit Provider Internal Medicine
DX: M54.16 Radiculopathy, lumbar region (principal)
CPT/HCPCS: 72110

== ENCOUNTER 2022-05-31 13:00 | Outpatient (RCR) | payer MEDICARE, OTHER, SELFPAY ==
--- NOTE | 2022-04-21 13:52 | HP.PTEVAL ---
Patient's Visit Information ADRIANNA GRESHAM is a 81 year old F referred to Physical Therapy by Dr. Sary Schmitt DO with a diagnosis of Lumbar radiculopathy. Date of Evaluation: 04/21/22 Physical Therapist: Nadeem Hodges, DPT, OCS, CSCS - Visit Plan Frequency: 2x /Week Duration: 4-6 Weeks Plan: Pt has signs and symptoms consistent with degenerative hip problem on the L. Please use MH to LB and L hip, leg pull and mobs, PROM L hip and stretching rollout to quad and psoas, progress to hip and core strength to I. Use TENS and Mh as needed. Pt to use cane to take weight off L hip as needed. Back to doctor to address hip if not improving in 3 weeks. Consider pool but pt not agreeable on this date. - Subjective Doctor thinks she has a pinched nerve. L hip hurts posterior lateral. It has hurt for about a month and started insidiously. No new activities. No numbness or tingling but does feel funny in the front of L leg to ankle. No LBP. Pain is up to 5/10. sitting on firm chair is worse. Avoids sleeping in bed as the mattress is firm which she normally likes. Can only sleep a couple hours and is worse in the morining sometimes using a crutch/cane until hip loosens up. Avoids longer walks due to hip pain. Walking around house helps loosen it up. Has basement steps which she does one step at a time using R, L leg hurts. Getting in and out of car is a chore. Not employed. Basic ADLs are getting done slowly. Takes care of a 4 yo at home some days. Takes all day to prepare family meal and needs frequent rests. No regular ex. - Pain L hip Pain Intensity (Out of 10): 0 Pain Intensity Range: 0, 5 Comment: worse with if sitting on fimr chair. - Objective L antalgia in gait and short R step length. Trasnfers I chair with L hip pain. Also I in table but L hip hurts to elevate in. LB AROM ext max limited and pulling front left leg. flexion OK, SB mod limited and more pain to the L. Hip PROM L 10 IR and pianful, 40 er with pain, barely neutral extension and pianful, 100 flexionw ith pain. R hip moves well without pain. Abduction L hip 12 and pain and tightness in muscles. +ALESHA and + FADDIR on L. - slump, - SLR. knees AROM and ankles WFL. reflexes 2/3 patella and achilles. Sensation LE WNL to gross light touch. Strength L hip 3/5 and pianful all directions, L 3+. knee strength flex and ext 3+, no pain. ankle strength 4- B. - Balance/Special Test Scores Oswestry Low Back Score: 29 - Goals Goal 1:: Pt feel pain 2/10 at worst and 75% improved in L hip Goal Time Frame: 4-6 Weeks Goal 2:: Walk in am without pain exitting bed Goal Time Frame: 4-6 Weeks Goal 3:: Walk in therapy without antalgia Goal Time Frame: 4-6 Weeks Goal 4:: Pt I in appropriate HEP for management of LB/hip Goal Time Frame: 4-6 Weeks Goal 5:: oswestry score 8 or better Goal Time Frame: 4-6 Weeks - Rehabilitation Potential Physical Therapy Diagnosis: degenerative changes likely in hip limiting funciton Rehabilitation Potential: Fair - Anticipated Interventions Patient/Client Instruction: Educate patient on: Condition, Plan of Care For the Purpose of:: To decrease pain, To increase ROM, To improve nutrient delivery to tissue, To improve muscle performance and motor function, To increase tolerance to activity/condition/position Therapeutic Exercise to Include: Strength training, Agility training, Postural training, Flexibilty training, Gait and locomotor training, Passive ROM, Active ROM, Dynamic Lumbar Stabilization For the Purpose of:: To decrease pain, To increase ROM, To improve nutrient delivery to tissue, To improve muscle performance and motor function, To increase tolerance to activity/condition/position, To improve ability of physical actions for home/community/work/leisure, To improve gait and locomotor functions Manual Therapy Techniques to Include: Mobilization, Passive ROM, Soft tissue mobilization For the Purpose of:: To decrease pain, To increase ROM TENS: Yes Thermo therapy (hot pack): Yes For the Purpose of:: To decrease pain, To increase ROM Thank you for the opportunity to evaluate your patient. For Medicare and Medicare HMO plans, please review the plan of care and approve it. It will need to be FAXED BACK to us at [phone] for Medicare purposes. For Medicare only, by signing this I certify the plan of care. Please let me know if there are questions or concerns regarding this plan of care. Physician Signature: Date:
--- NOTE | 2022-05-31 13:20 | HP.PTDCSUM ---
It has been my pleasure to treat ADRIANNA GRESHAM referred by Dr. Sary Schmitt DO, with the diagnosis of Lumbar radiculopathy L for a total of 8 visit(s). Discharge Date: 05/31/22 Please see the following information for a summary of their discharge status. Subjective: Been doing exercises athome. been doing OK. Its as good as it was 2-3 weeks ago. Still trouble with lifting L leg to get in passenger side. Putting pants on (flexing hip) is still a challenge. Sometimes hurts down L leg with ambulation, not constant. Standing for long time is problematic. Sitting too long can hurt lateral hip also. sleep is OK some nights. L hip Pain Intensity (Out of 10): 0 % Improvement: 80 Objective/Function: LB AROM not painful today and WFL. Some stiffness with extension. L hip is limited IR and very painful, flexion past 100 is painful L. Walking today very well with improved hip extension. Subjectively 80% better but stagnant with improvement. Goal 1:: Pt feel pain 2/10 at worst and 75% improved in L hip Goal Progress: Not Progressing Goal 2:: Walk in am without pain exitting bed Goal Progress: Not Progressing Goal 3:: Walk in therapy without antalgia Goal Progress: Goal Met Goal 4:: Pt I in appropriate HEP for management of LB/hip Goal Progress: Goal Met Goal 5:: oswestry score 8 or better Goal Progress: Not Progressing Plan: d/c, pt to contact doctor for next step/options. Discharge Comments: Pt 80% better but stagnant with HEP on further improvement. Clinically and subjectively this looks like L hip OA and patient wishes to have this and the treatment options further explored with doctor and will schedule with her office at this time. If there are questions or concerns regarding this patient's physical therapy, please feel free to call me at [phone]. Thank you for the referral of this patient. Sincerely, Nadeem Hodges, DPT, OCS, CSCS Balance/Gait/Functional tests - Balance/Special Test Scores Oswestry Low Back Score: 15
== END 2022-05-31 19:00 | disposition home or self-care (01) ==
LOC: PT 13:00
PROVIDERS: PCP Internal Medicine; Referring Provider Internal Medicine; Visit Provider Internal Medicine
DX: M54.16 Radiculopathy, lumbar region (principal)
CPT/HCPCS: 97110; 97140; 97161; 97164; 97530

== ENCOUNTER → 2022-06-20 | Outpatient (CLI) | payer MEDICARE, OTHER, SELFPAY ==
--- NOTE | 2022-06-20 13:36 | BI_ITS ---
MAMMOGRAPHY - BILATERAL SCREENING REASON FOR EXAM: Female, 82 years old. Routine annual screening examination. PERTINENT HISTORY: Sister with breast cancer. Grandmother with breast cancer. TECHNIQUE: Digital bilateral breast rashaad (3D mammographic acquisition) in the CC and MLO projections. 2-D mediolateral oblique (MLO) and craniocaudad (CC) views of both breasts were obtained. CAD: Full Field Digital Mammography with Computer Added Detection was performed. COMPARISON: Comparison is made with prior study dated 05/03/2021 and 04/30/2020. FINDINGS: Breast Composition: The breasts are almost entirely fatty. There are no dominant masses or suspicious calcifications. Stable secretory type of calcifications seen in both breasts. Stable small benign-appearing bilateral axillary lymph nodes. Loop recording device is seen along the inferior medial aspect of the left breast. No other significant abnormalities are identified. There has been no significant change since the prior study. BI/SCRN MAMM (CAD)W/RASHAAD BILAT IMPRESSION: Stable bilateral screening mammogram. Yearly follow-up mammogram recommended. (A) ASSESSMENT CATEGORY: BIRADS Category 2: Benign. A letter regarding these results will be sent to the patient by the facility within 30 days. Approximately 10% of breast cancers are not detected by mammography. A normal mammogram should not delay biopsy of a clinically suspicious abnormality. [id number] Electronically Signed: Cassius Cervantes MD at 14:51 EST ,
== END | disposition home or self-care (01) ==
LOC: OPBI 13:34
PROVIDERS: PCP Internal Medicine; Referring Provider Internal Medicine; Visit Provider Internal Medicine
DX: Z12.31 Encounter for screening mammogram for malignant neoplasm of breast (principal); Z80.3 Family history of malignant neoplasm of breast
CPT/HCPCS: 77063; 77067

== ENCOUNTER → 2022-07-04 | Outpatient (CLI) | payer MEDICARE, OTHER, SELFPAY ==
--- NOTE | 2022-07-04 16:01 | RAD_ITS ---
EXAM: XR LEFT WRIST COMPLETE, 3 OR MORE VIEWS CLINICAL INDICATION: PAIN TECHNIQUE: Frontal, lateral and oblique views of the left wrist. This report was created using [employer] report generation technology. COMPARISON: None. FINDINGS: BONES/JOINTS: Degenerative and hypertrophic change at the base of the thumb, best seen on the lateral and oblique views. Heterogeneous bone density. No fracture or dislocation identified. SOFT TISSUES: Minimal soft tissue swelling at the wrist. No radiopaque foreign body. RAD/Wrist min 3 Views IMPRESSION: Heterogeneous bone density, degenerative changes of the base of the thumb, and mild soft tissue swelling. Electronically Signed: Lilia Banuelos MD at 8:05 EST ,
--- NOTE | 2022-07-04 16:01 | RAD_ITS ---
EXAM: XR LEFT SHOULDER COMPLETE, 2 OR MORE VIEWS CLINICAL INDICATION: PAIN TECHNIQUE: 4 views, neutral, internal and external rotation, scapular Y view. COMPARISON: None. FINDINGS: No fracture or subluxation identified. Unremarkable adjacent left ribs and left lung. RAD/Shoulder min 2 Views IMPRESSION: No suspicious findings. Electronically Signed: Lilia Banuelos MD at 8:12 EST ,
--- NOTE | 2022-07-04 16:01 | RAD_ITS ---
EXAM: XR LEFT HIP WITH PELVIS WHEN PERFORMED, 2 OR 3 VIEWS CLINICAL INDICATION: PAIN TECHNIQUE: AP pelvis and 2 views of the left hip in neutral and mildly frog leg lateral position. 3 Total views. COMPARISON: None. FINDINGS: No hip or pelvis fracture identified. Mild sclerosis on both sides of the SI joints. Intact pubic symphysis. No obvious hip joint effusion or fracture. Well-maintained and fairly symmetric hip joints. RAD/HIP, UNI W/ Pelvis 2-3 Views IMPRESSION: No acute abnormality. Electronically Signed: Lilia Banuelos MD at 8:15 EST ,
--- NOTE | 2022-07-04 16:01 | RAD_ITS ---
EXAM: XR RIGHT SHOULDER COMPLETE, 2 OR MORE VIEWS CLINICAL INDICATION: PAIN TECHNIQUE: Neutral, internal and externally rotated, and scapular Y views. COMPARISON: None. FINDINGS: Flattening and sclerosis of the superolateral right humeral head greater tuberosity, uncertain chronicity. Intact glenohumeral and AC joints. Intact clavicle. Intact visualized right ribs and lung. RAD/Shoulder min 2 Views IMPRESSION: Flattening and sclerosis at the superior lateral humeral head is suspicious for Hill-Sachs compression fracture due to prior dislocation and impaction, possibly chronic. Otherwise, follow-up exam. Electronically Signed: Lilia Banuelos MD at 8:10 EST ,
== END | disposition home or self-care (01) ==
LOC: MTRAD 16:00
PROVIDERS: PCP Internal Medicine; Referring Provider Internal Medicine; Visit Provider Internal Medicine
DX: M25.552 Pain in left hip (principal); M25.532 Pain in left wrist; M25.511 Pain in right shoulder; M25.512 Pain in left shoulder
CPT/HCPCS: 73030; 73110; 73502

== ENCOUNTER 2022-09-13 14:30 | Outpatient (RCR) | payer MEDICARE, OTHER, SELFPAY ==
--- NOTE | 2022-07-13 16:36 | HP.OTEVAL ---
Patient's Visit Information ADRIANNA GRESHAM is a 82 year old F, referred to Occupational Therapy by Dr. Sary Schmitt DO, with a diagnosis of left wrist pain, OA, DeQuervain's. Date of Evaluation: 07/13/22 Occupational Therapist: MARIANNE Rebollar/Deysi, CHT - Subjective This 82 year old female was seen for OT eval with dx of left wrist pain. Arthritis DeQuervain's pt states pain started about three weeks ago.(possibly from holding her cell phone to long). pt is right handed. pt states some pain with right digits and stiffness form OA. 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 pt states she does have a wrist brace but did not bring it with her today- pt states pain with dressing and daily tasks. pt would like to return to her PLOF. - Pain left wrist/hand 0 Pain Intensity Range: 0, 4 - ROM Forearm: right supination 45 left 50 ( pt has had difficulty remote hx. Wrist: right 45/45 left 45/25 CMC: right 15 left 10 MP: right 35 left 45 IP: right 65 left 60 Radial Abduction: right 45 left 35 Palmar Abduction: right/left WNL Opposition: Kapandji opposition scale right 9 left 9 - Edema Wrist: right 16cm left 16.5cm - Sensation Sensation Comments: denies - Special Tests WHAT Test: left positive - Quick DASH-Disab of Arm,Shoulder& Hand Quick DASH Score: 40.9075 - Goals Goal:ROM equal to unaffected hand: Yes Goal:No pain with affected hand use: Yes Goal:Full use of affected hand in daily activities including: Yes Comment: ergonomics/joint protection Other Goal: Pt will demo understanding of joint protection and ergonomics when performing BADLs and IADLs by d/c. Pt will demo understanding of adaptive Equipment use to decrease stress on joints to allow pt to perform BADSL and IADLS at ELENO level. - Rehabilitation General Assessment: pt demo with limited ROM and pain with use of left hand with ADLs and IADls .pt demo with positive signs of 1st dorsal tendonitis (DeQuervain's) pt would benefit from skilled OT services 1-2x week for 4 weeks to decrease pain and increase use of left UE with ALDs and IADLs. Pt demo understanding and agree to POC. Rehabilitation Potential: Good - Anticipated Interventions A/AAROM/PROM, Strengthening, Modalities, Orthoses, Joint Protection/Energy Conservation, Ergonomic Education, Education re assistive Equipment, Education re Diagnosis, Home Program - Visit Plan Frequency: 1-2x /Week Duration: 4 Weeks TEXT: Thank you for the opportunity to evaluate your patient. For Medicare and Medicare HMO plans, please review the plan of care and approve it. It will need to be FAXED BACK to us at [phone] for Medicare purposes. Please let me know if there are questions or concerns regarding this plan of care. Physician Signature: Date:
--- NOTE | 2022-07-26 12:08 | HP.PTEVAL_ITS ---
Patient's Visit Information ADRIANNA GRESHAM is a 82 year old F referred to Physical Therapy by Dr. Sary Schmitt DO with a diagnosis of R shoulder pain. Date of Evaluation: 07/13/22 Physical Therapist: Vin Nance DPT - Visit Plan Frequency: 2x /Week Duration: 4 Weeks Plan: Start with AAROM as tolerated. Add in scapular and RTC strengthening as tolerated. May need to add in US to anterior shoulder to reduce symptoms as needed. - Subjective Pt. is here today for her initial evaluation with diagnosis of R shoulder pain. Pt. is also seeing OT for wrist and possible de quervain's tenosynovitis. Pt. reports having pain at the front of her shoulder. No mech of injury noted. Pt reports having increased pain with shoulder elevation, UB dressing, and is having some issues with sleeping. Pt. is having some wrist issues as well, but is seeing OT for this. Pt. has tried ice and heat without much progress. Pt. is having some pain with driving as well. Pt. is hopeful to reduce symptoms to get back to doing all recreational activities and ADLs without increase in symptoms. - Pain R shoulder Pain Intensity (Out of 10): 3 Pain Intensity Range: 1, 7 - Objective POSTURE: Pt. has decent posture in sitting and standing, slight FH with slight rounded shoulders. PALPATION: Pt. has tenderness at anterior shoulder. Pt. has no scapular pain. NEURO: Pt. has normal sensation and normal to light and sharp touch. ROM: L shoulder: full motion without increase in symptoms. R shoulder: flexon 165deg increase NW abd 165deg mild increase NW, functional ER C3 mild increase NW, functional IR L4 mild increase NW. MMT: L shoulder 5-/5 throughout. R shoulder: flexion 4+/5 increase NW, abd 4+/5 increase NW, ext 5/5 NE, ER 4/5 increase NW, IR 5/5 NE. - Special Tests R Shoulder Lift Off Test - Subscapular Tear: Negative R Shoulder Drop Sign - IS Test: Negative R Shoulder Empty Can - SS: Positive R Shoulder Belly Press - SupScap: Negative R Shoulder Neer - Impingement: Positive R Shoulder Plascencia Anderson - Impingement: Positive R Shoulder Speeds Test - Labrum/Biceps: Positive - Balance/Special Test Scores Quick DASH Score: 20.4525 - Goals Goal 1:: LTG: Pt. to be I with HEP. Goal Time Frame: 4-6 Weeks Goal 2:: STG: Pt. to have increased ROM to full without increase in symptoms. Goal Time Frame: 2-4 Weeks Goal 3:: LTG: Pt. to have increased strength in her R shoulder by 1/2 grade of all effected musculature. Goal Time Frame: 4-6 Weeks Goal 4:: STG: pt. to sleep throughout the night without increase in symptoms. Goal Time Frame: 2-4 Weeks Goal 5:: LTG: Pt. to complete all ADls and recreational activities without increase in symptoms. Goal Time Frame: 4-6 Weeks - Rehabilitation Potential Physical Therapy Diagnosis: Pt. has signs and symptoms consistent with R shoulder tendinitis. Pt. had limited end range of motion with increased pain with strength testing. She did not have signs of RTC tear and I am leaning more toward a tendinitis. Pt. would benefit from PT to work on end range of motions and RTC/scapular strengthening. Rehabilitation Potential: Good - Anticipated Interventions Patient/Client Instruction: Educate patient on: Condition, Plan of Care, Risk Factors, Benefits of Fitness Program For the Purpose of:: To foster healthy habits, To improve decision making, To facilitate caregiver knowledge, To improve self management, To prevent re- injury, To improve ability to perform tasks related to life management Therapeutic Exercise to Include: Strength training, Power training, Postural training, Flexibilty training, Passive ROM, Active ROM, Scapular Strength/Stabilization For the Purpose of:: To decrease pain, To increase ROM, To improve nutrient delivery to tissue, To increase oxygenation perfusion, To improve muscle performance and motor function, To improve ability to perform ADL's, To increase tolerance to activity/condition/position, To increase flexibility/ROM, To improve endurance Ultrasound (thermal/non thermal): Yes For the Purpose of:: To decrease pain, To decrease swelling/inflammation, To increase ROM, To improve nutrient delivery to tissue, To improve ability of physical actions for home/community/work/leisure, To improve health of tissue, To increase flexibility/ROM Thank you for the opportunity to evaluate your patient. For Medicare and Medicare HMO plans, please review the plan of care and approve it. It will need to be FAXED BACK to us at [phone] for Medicare purposes. For Medicare only, by signing this I certify the plan of care. Please let me know if there are questions or concerns regarding this plan of care. Physician Signature: Date:
--- NOTE | 2022-09-13 14:17 | HP.OTDCSUM ---
It has been my pleasure to treat ADRIANNA GRESHAM under orders from Dr. Sary Schmitt DO, for the diagnosis of left wrist pain, OA, DeQuervain's for a total of 11 visit(s). Please see the following information for a summary of their discharge status. % Improvement: 85 Objective/Function: left wrist 40/55. left CMC 10. left MP 50. left IP 65. RA 45*. 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 pt has made gains with her ROM. and reports pain is not as consistent- and if she gets pain now is quick Patient Goals: Decrease Pain, Use Hand/Wrist/Arm Normally Again, Be More Independent in ADLS Goal:ROM equal to unaffected hand: Yes Goal:No pain with affected hand use: Yes Goal:Full use of affected hand in daily activities including: Yes Other Goal: Pt will demo understanding of joint protection and ergonomics when performing BADLs and IADLs by d/c. Pt will demo understanding of adaptive Equipment use to decrease stress on joints to allow pt to perform BADSL and IADLS at ELENO level. Plan: D/C Discharge Comments: pt was seen for 11 OT sessions- pt has made great gains with strength and increase in ROM. pts pain is down and states she only gets pain on occasions . pt has met OT goals and is now D/C with HEP of joint protection louie, and ad. eq. pt agrees with D/C. If there are questions or concerns regarding this patient's occupational therapy, please fell free to call me at [phone]. Thank you for the referral of this patient. Sincerely, Deepika Sow, OTR/L, CHT
== END 2022-09-13 19:00 | disposition home or self-care (01) ==
LOC: PT 14:30
PROVIDERS: PCP Internal Medicine; Referring Provider Internal Medicine; Visit Provider Internal Medicine
DX: M25.511 Pain in right shoulder (principal); M25.532 Pain in left wrist
CPT/HCPCS: 97035; 97110; 97140; 97161; 97164; 97166; 97530; 97760; 97763

== ENCOUNTER 2022-10-26 13:58 | Outpatient (RCR) | payer MEDICARE, OTHER, SELFPAY ==
--- NOTE | 2022-10-27 07:34 | HP.OTEVAL_ITS ---
Patient's Visit Information MUNIRA GRESHAM is a 82 year old F, referred to Occupational Therapy by Dr. 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 Date of Evaluation: 10/26/22 Occupational Therapist: Deepika Sow, OTR/Deysi, CHT - Subjective Munira is well know to this facility as we had seen her in the past for CMC OA/wrist tendinitis. (seen for 11 visits and just D/c in September). This 82 year old female was seen for OT brittney with dx of left unilateral Primary Osteoarthri tis of 1st carpometacarpal joint. pt states on Monday her great grandson grab and twisted her hand. This cause increase in left thumb/wrist pain. pt went to see Dr. Hinton did cortisone injections to left hand confirming CMC OA. Pt was fabricated custom TSS to provide protection and support. Pt states she has had no pain. - Pain left wrist 0 - ROM Wrist: right 45/45 left 45/45 CMC: right 5 left 0 MP: right 40 left 50 IP: right 70 left 70 Radial Abduction: right 30 left 30 Opposition: kapandji opposition scale right 9 left 9 ( LF MP crease) - Strength Instrument/Control Technician: right 25 left 25# Lateral Pinch: right 10# left 10# - Sensation Sensation Comments: denies - Quick DASH-Disab of Arm,Shoulder& Hand Quick DASH Score: 11.3625 - Rehabilitation General Assessment: Pt has been seen in the past and ed. on work/ADL ergo. joint protection louie. and ad. eq. to decrease stress on her joints/tendons. Pt arrives today no Pain since her cortisone shot- demo understanding of ergo. joint protection louie./ work simplification louie. louie. Pt confirms she is wearing TSS at night only. Dr. noe indicate eval/teat, ADL instructions/work simplification/joint protection. As pt was seen in our clinic prior for this pt agrees she understands and will continue with currently placed modifications. This therapist advised if her custom TSS needs adj. to increase comfort to return to clinic. pt demo understanding and agree to POC. - Visit Plan General Plan: Pt will continue with her HEP on joint protection louie. ADL work simplification louie. Use of her TSS at night TEXT: Thank you for the opportunity to evaluate your patient. For Medicare and Medicare HMO plans, please review the plan of care and approve it. It will need to be FAXED BACK to us at [phone] for Medicare purposes. Please let me know if there are questions or concerns regarding this plan of care. Physician Signature: Date:
--- NOTE | 2022-10-27 07:35 | HP.OTDCSUM ---
It has been my pleasure to treat ADRIANNA GRESHAM under orders from Dr. 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 Please see the following information for a summary of their discharge status. Objective/Function: Pt demo understanding of joint protection louie. ad. eq. use and work simplification- use of custom TSS. pts agrees cortisone injection has resolved her pain- this therapist ed. pain may be gone but she still needs to protect joints. pt demo understanding and agrees to d.c. If there are questions or concerns regarding this patient's occupational therapy, please fell free to call me at [phone]. Thank you for the referral of this patient. Sincerely, Deepika Sow, OTR/L, CHT
== END 2022-10-26 19:00 | disposition home or self-care (01) ==
LOC: OT 13:58
PROVIDERS: PCP Internal Medicine; Referring Provider Orthopaedic Surgery; Visit Provider Orthopaedic Surgery
DX: M18.12 Unilateral primary osteoarthritis of first carpometacarpal joint, left hand (principal)
CPT/HCPCS: 97166

== ENCOUNTER → 2022-11-29 | Outpatient (CLI) | payer MEDICARE, OTHER, SELFPAY ==
--- NOTE | 2022-11-29 12:56 | BD_ITS ---
STUDY: DUAL ENERGY X-RAY ABSORPTIOMETRY / DXA REASON FOR EXAM: Female, 82 years old. [id number] TECHNIQUE: Bone Mineral Density (BMD) measurements of lumbar spine and bilateral hips were obtained. COMPARISON: Comparison is made with prior study October 22, 2020. FINDINGS: Lumbar Spine (L1-L4): g/cm2 (1.149) / T-score (0.4) / Z-score (3.4) Findings are suggestive of normal bone density with a low fracture risk. Left Femur Total: g/cm2 (0.872) / T-score (-0.6) / Z-score (1.7) Left Femoral Neck: g/cm2 (0.588) / T-score (-2.4) / Z-score (0.1) Right Femur Total: g/cm2 (0.825) / T-score (-1.0) / Z-score (1.3) Right Femoral Neck: g/cm2 (0.571) / T-score (-2.5) / Z-score (0.0) The T-Scores on the most recent prior examination were: Lumbar Spine (L1-L4): There has been worsening of bone density since the previous examination. Left Femur Total: which represents an improvement of 3.6%. Right Femur Total: which represents a worsening of 1.3%. BD/Dexa Bone Density Study IMPRESSION: The patient is considered osteopenic as outlined below according to World [employer] Organization (WHO) criteria with a high fracture risk. There has been worsening of bone density since the previous examination. Reference Information: The T-score is the number of standard deviations above or below the standard which is normal for young adults at their peak bone mineral density. The World Health Organization (WHO) interprets the T-scores as follows: Above -1 Normal bone density Between -1 and -2.5 Osteopenia Equal to / or below -2.5 Osteoporosis As a practical clinical guideline, osteopenia may be graded as follows: Mild -1 through -1.5 Moderate -1.6 through -2.0 Severe -2.1 through -2.4 The Z-score is the number of standard deviations above or below age-matched controls. A Z-score of less than -1.5 would be considered abnormal. References: 1. NIH Osteoporosis and Related Bone Diseases www osteo.org 2. International Society for Clinical Densitometry www iscd.org 3. National Osteoporosis Foundation www nof.org Electronically Signed: Cassius Cervantes MD at 12:46 EDT ,
== END | disposition home or self-care (01) ==
LOC: OPBD 12:46
PROVIDERS: PCP Internal Medicine; Referring Provider Internal Medicine; Visit Provider Internal Medicine
DX: Z78.0 Asymptomatic menopausal state (principal)
CPT/HCPCS: 77080

== ENCOUNTER → 2023-02-28 | Outpatient (CLI) | payer MEDICARE, OTHER, SELFPAY ==
--- NOTE | 2023-02-28 13:52 | CDU_ITS ---
Reason For Study: carotid stenosis Rt. Velocities/BP Lt. Velocities/BP Prox CCA 57.9/11.6 cm/sec. Prox CCA 63.1/11.6 cm/sec. Mid CCA 49.4/11.6 cm/sec. Mid CCA 50.0/9.9 cm/sec. Dist CCA 43.7/9.7 cm/sec. Dist CCA 38.6/9.0 cm/sec. Prox ICA 46.6/13.5 cm/sec. Prox ICA 42.1/10.7 cm/sec. Mid ICA 56.0/16.3 cm/sec. Mid ICA 51.7/16.8 cm/sec. Dist ICA 88.1/25.8 cm/sec. Dist ICA 76.1/24.7 cm/sec. Rt. ICA/CCA = 1.8. Lt. ICA/CCA = 1.5. Prox ECA 67.4/6.0 cm/sec. Prox ECA 50.9/5.5 cm/sec. Rt. Vert. 40.4/6.4 cm/sec. Lt. Vert. 50.9/13.3 cm/sec. Right Extracranial There is homogeneous, smooth atherosclerotic plaque noted in the right common carotid artery. There is heterogeneous, irregular atherosclerotic plaque noted in the right internal carotid artery. There is heterogeneous, irregular atherosclerotic plaque noted in the right external carotid artery. Antegrade flow is noted in the right vertebral artery. Left Extracranial There is homogeneous, smooth atherosclerotic plaque noted in the left common carotid artery. There is heterogeneous, irregular atherosclerotic plaque noted in the left internal carotid artery. There is homogeneous, smooth atherosclerotic plaque noted in the left external carotid artery. Antegrade flow is noted in the left vertebral artery. Procedure Carotid Duplex [id number]. This is a Carotid Duplex examination using B-mode, color flow and specral Doppler. The exam was diagnostic. Exam performed in department. VL/Carotid Duplex Ultrasound Interpretation Summary Mild (<50%) stenosis right extracranial internal carotid. Mild (<50%) stenosis left extracranial internal carotid. Patent and antegrade vertebrals bilaterally. Ordering Physician: Sary Schmitt Performed By: Catracho Patel RVT
== END | disposition home or self-care (01) ==
LOC: CVS 13:52
PROVIDERS: PCP Internal Medicine; Referring Provider Internal Medicine; Visit Provider Internal Medicine
DX: I65.23 Occlusion and stenosis of bilateral carotid arteries (principal)
CPT/HCPCS: 93880

== ENCOUNTER → 2023-07-11 | Outpatient (CLI) | payer MEDICARE, OTHER, SELFPAY ==
--- NOTE | 2023-07-11 13:19 | BI_ITS ---
MAMMOGRAPHY - BILATERAL SCREENING REASON FOR EXAM: Female, 83 years old. Routine annual screening examination. PERTINENT HISTORY: Sister with breast cancer. Grandmother with breast cancer. TECHNIQUE: Digital bilateral breast rashaad (3D mammographic acquisition) in the CC and MLO projections. 2-D mediolateral oblique (MLO) and craniocaudad (CC) views of both breasts were obtained. CAD: Full Field Digital Mammography with Computer Added Detection was performed. COMPARISON: Comparison is made with prior study dated December 18, 2022 and May 03, 2021. FINDINGS: Breast Composition: The breasts are almost entirely fatty. There are no dominant masses or suspicious calcifications. Recording device is once again seen along the inferior medial aspect of the left breast. Stable scattered bilateral secretory calcifications. No other significant abnormalities are identified. There has been no significant change since the prior study. BI/SCRN MAMM (CAD)W/RASHAAD BILAT IMPRESSION: Stable bilateral screening mammogram. Yearly follow-up mammogram recommended. (A) ASSESSMENT CATEGORY: BIRADS Category 2: Benign. A letter regarding these results will be sent to the patient by the facility within 30 days. Approximately 10% of breast cancers are not detected by mammography. A normal mammogram should not delay biopsy of a clinically suspicious abnormality. [id number] Electronically Signed: Cassius Cervantes MD at 14:38 EST ,
== END | disposition home or self-care (01) ==
LOC: OPBI 13:19
PROVIDERS: PCP Internal Medicine; Referring Provider Internal Medicine; Visit Provider Internal Medicine
DX: Z12.31 Encounter for screening mammogram for malignant neoplasm of breast (principal)
CPT/HCPCS: 77063; 77067

== ENCOUNTER → 2023-07-13 | Outpatient (CLI) | payer MEDICARE, OTHER, SELFPAY ==
--- NOTE | 2023-07-13 12:47 | US_ITS ---
EXAM: US RETROPERITONEAL LIMITED, RENAL CLINICAL INDICATION: protein in urine -- protein in urine TECHNIQUE: Limited grayscale and color Doppler sonographic evaluation of the retroperitoneum was performed. COMPARISON: No relevant prior studies available. FINDINGS: RIGHT KIDNEY: Right kidney measures 9.8 cm in length. Question 3 mm right renal stone. 15 mm right renal cyst. No hydronephrosis. No perinephric collection is demonstrated. LEFT KIDNEY: Left kidney measures 9.2 cm in length. 7 mm echogenic focus within the left kidney may represent scar/calcification. No hydronephrosis. No shadowing calculus. No perinephric collection is demonstrated. BLADDER: Urinary bladder is normal. US/Kidney and Bladder IMPRESSION: Borderline small kidneys without hydronephrosis. Question bilateral nephrolithiasis Electronically Signed: Gustavo Brown MD at 16:53 EST ,
== END | disposition home or self-care (01) ==
LOC: US 12:46
PROVIDERS: PCP Internal Medicine; Referring Provider Internal Medicine; Visit Provider Internal Medicine
DX: R80.9 Proteinuria, unspecified (principal)
CPT/HCPCS: 76770

== ENCOUNTER 2023-11-18 05:57 | Emergency (ER) | payer MEDICARE, OTHER, SELFPAY ==
[2023-11-18 05:57] VITALS: PULSE 80; RESP 16; TEMP 35.8; O2SAT 98; BMI 30.5
[2023-11-18 06:02] VITALS: BP 175/88
--- NOTE | 2023-11-18 06:30 | RAD_ITS ---
EXAM: XR LEFT SHOULDER COMPLETE, 2 OR MORE VIEWS CLINICAL INDICATION: pain TECHNIQUE: Two or more views of the left shoulder. COMPARISON: No relevant prior studies available. FINDINGS: BONES/JOINTS: Unremarkable. No acute fracture. No subluxation. Normal alignment. Preservation of the joint space. No sclerotic or destructive changes observed. SOFT TISSUES: Unremarkable. No soft tissue swelling or gas. No radiopaque foreign body. RAD/Shoulder min 2 Views IMPRESSION: Negative left shoulder x-rays. Electronically Signed: Sb Renee MD at 7:07 EDT ,
[2023-11-18] MEDS: HYDROcodone Bitartrate/Apap 5/325 Tablet PO (06:35)
--- NOTE | 2023-11-18 07:48 | EDS_ITS ---
HPI History of Present Illness Chief Complaint: Upper Extremity Injury Informant: patient and spouse/S.O. Narrative Narrative: 83-year-old female presenting to the emergency room with posterior left shoulder pain. Patient states that yesterday she attempted to lift a flowerpot which she did not find heavy up off the ground. She states that she felt something pull in the posterior aspect of her shoulder near the lower part of her scapula. She states that she thought that she just strained the muscle that she was unable to sleep last night so she came to emergency. She denies any distal symptoms. She states there are certain movements particularly pulling that causes more pain. She denies any difficulty with abduction. She states that she has had some problems with her shoulders in the past and has had physical therapy for them. She denies any known rotator cuff tears. She has no local orthopedist but is interested in following up with somebody locally. [facility] Medical History Non-rheumatic mitral regurgitation Non-rheumatic tricuspid valve insufficiency Pure hypercholesterolemia Essential hypertension Status post placement of implantable loop recorder Transient cerebral ischemic attack Embolic stroke Type 2 diabetes mellitus Hypothyroidism Acute embolic stroke Home Medications ?Medication ?Instructions ?Recorded ?Last Taken ?Type cyanocobalamin (vitamin B-12) 2,500 mcg PO DAILY 11/10/16 11/09/16 History 2,500 mcg tablet clopidogrel 75 mg tablet 75 mg PO DAILY 90 days ##90 06/20/17 Unknown History famotidine 20 mg tablet 40 mg PO DAILY 30 days #60 tabs 09/19/18 Unknown History finasteride 5 mg tablet 2.5 mg PO DAILY 09/24/19 Unknown History levothyroxine 75 mcg tablet 75 mcg PO DAILY 09/24/19 Unknown History rosuvastatin 40 mg tablet 40 mg PO DAILY 09/24/19 Unknown History metformin 500 mg tablet 500 mg PO DAILY 11/11/20 Unknown History cholecalciferol (vitamin D3) 25 25 mcg PO DAILY 11/15/21 Unknown History mcg (1,000 unit) chewable tablet vibegron 75 mg tablet (Gemtesa) 75 mg PO DAILY 11/30/22 Unknown History fesoterodine 8 mg tablet,extended 4 mg PO DAILY 11/18/23 Unknown History release 24 hr hydrocodone-acetaminophen 5-325mg 1 tab PO Q6H PRN PRN Pain 3 days 11/18/23 Unknown Rx 5mg-325mg #12 TABLETS Allergy/AdvReac Type Severity Reaction Status Date / Time No Known Allergies Allergy Verified 11/18/23 05:58 Family History Sister Cancer Sister Cancer Grandmother Breast cancer Mother Cardiac arrest Surgical History History of carpal tunnel surgery of right wrist History of lumbar surgery H/O: hysterectomy Social History Smoking Status: Never smoker alcohol intake: never substance use type: does not use diet: diabetic caffeine: Yes Type: coffee what type of physical activity do you participate in: none seatbelt use: always do you feel safe at home: Yes ROS ROS ED Constitutional Constitutional ED: Denies chills, fever(s) or weight loss Eyes Eyes: Denies change in vision or diplopia ENT ENT ED: Denies ear pain, rhinorrhea or sore throat Cardiovascular Cardiovascular: Denies chest pain, orthopnea, palpitations or racing heartbeat Respiratory/Chest Respiratory/Chest: Denies cough, dyspnea or orthopnea Gastrointestinal Gastrointestinal: Denies abdominal pain, diarrhea, nausea or vomiting Genitourinary Genitourinary ED: Denies dysuria, hematuria or urinary frequency Musculoskeletal Musculoskeletal: Reports neck pain and other Details: See history of present illness ; Denies arthralgias or myalgias Integumentary Denies abscess or rash Neurologic Neurologic: Denies headache(s) or weakness Psychiatric Psychiatric: Denies anxiety, depression, suicidal ideation or suicidal thoughts Endocrine Endocrinology: Denies polydipsia, polyphagia or polyuria Allergic/Immunologic Allergic/Immunologic ED: Denies mouth swelling, tongue swelling or urticaria EXAM Physical Exam Const Vital Signs: 11/18/23 05:57 11/18/23 06:02 Temperature 96.4 F L Temperature Source Temporal Pulse Rate 80 Respiratory Rate 16 Blood Pressure 175/88 H Blood Pressure Mean 117 Pulse Ox 98 Oxygen Delivery Method Room Air Positive well nourished and well developed General Appearance ED: well developed HEENT Reports normocephalic, head/scalp atraumatic and moist mucous membranes Eyes PERRL and EOMs intact bilaterally Neck no lymphadenopathy, supple and no JVD Resp normal respiratory effort and clear to auscultation bilaterally Cardio regular rate, regular rhythm and no murmurs GI normal to inspection, nondistended, normoactive bowel sounds and non-tender Palpation: soft Back/Spine no CVA tenderness and normal ROM Extremity Extremity Narrative: Patient reports tenderness to palpation in the subscapularis infraspinatus region. Negative empty beer can test. She is able to reach across her chest with her arm she is able to pull backwards against gravity. Normal abduction. No obvious deformity. Neurovascular intact distally. No bruising/ecchymosis noted. No rashes. General Extremety ED: Negative for edema General Extremity: Negative for edema Neuro oriented x3 and CN's II-XII intact bilaterally Sensorium / Orientation: alert Sensory Exam: No sensory level loss detected Motor Exam: strength 5/5 throughout Psych mental status grossly normal Mood & Affect: Negative for depressed or tearful Skin no rashes or lesions noted and no wounds MDM MDM MDM Narrative Medical decision making narrative: Differential diagnosis includes but not limited to rotator cuff tear subluxation dislocation fracture muscle strain ligamentous sprain shingles My independent interpretation the plain films of the left shoulder is no acute fracture. Clinically I think the patient most likely has a muscle strain. We did talk about rotator cuff injuries. She is going to rest ice anti- inflammatories as able I will write for a few [place] for pain. Patient did tolerate and [place] here in the department without significant sedation. History & Record Review Discussion w/independent historian: Patient and Significant other Radiography Diagnostic Testing: Clinical Impression(s) from Imaging Studies Shoulder X-Ray 11/18/23 06:30 IMPRESSION: Negative left shoulder x-rays. Electronically Signed: Sb Renee MD at 7:07 EDT , Discharge Plan Triage Chief Complaint: Upper Extremity Injury ED Provider: Morales Howard Dx/Rx/DC Orders Clinical Impression: Muscle strain of left scapular region Instructions: ED Shoulder Sprain, ED Muscle Strain, Extremity Prescriptions: New hydrocodone-acetaminophen 5-325 mg tablet 1 tab PO Q6H PRN PRN (Reason: Pain) 3 Days Qty: 12 0RF No Action clopidogrel 75 tablet 75 mg PO DAILY 90 Days Qty: 90 Patient Comments: famotidine 20 mg tablet 40 mg PO DAILY 30 Days Qty: 60 Patient Comments: rosuvastatin 40 mg tablet 40 mg PO DAILY finasteride 5 mg tablet 2.5 mg PO DAILY metformin 500 mg tablet 500 mg PO DAILY cholecalciferol (vitamin D3) 25 mcg (1,000 unit) tablet,chewable 25 mcg PO DAILY Gemtesa 75 mg tablet 75 mg PO DAILY cyanocobalamin (vitamin B-12) 2,500 MCG tablet 2,500 mcg PO DAILY Patient Comments: supplement levothyroxine 75 mcg tablet 75 mcg PO DAILY Patient Comments: thyroid fesoterodine 8 mg tablet extended release 24 hr 4 mg PO DAILY Primary Care Provider: Sary Schmitt Referrals: Sary Schmitt DO [Primary Care Provider] - Roberto Carlos Mccrary DO [Med Staff - Active Staff] - 10-14 Days if not better Print Language: Wolof Disposition Disposition: Home, Self Care
[2023-11-18 07:57] VITALS: BP 127/63; PULSE 84; RESP 16; TEMP 36.8; O2SAT 96
== END 2023-11-18 07:58 | disposition home or self-care (01) ==
PROVIDERS: Emergency Provider Emergency Medicine; PCP Internal Medicine; Visit Provider Emergency Medicine
DX: S39.012A Strain of muscle, fascia and tendon of lower back, initial encounter (principal); E11.9 Type 2 diabetes mellitus without complications; E78.00 Pure hypercholesterolemia, unspecified; I10 Essential (primary) hypertension; E03.9 Hypothyroidism, unspecified; Z79.01 Long term (current) use of anticoagulants; Z79.899 Other long term (current) drug therapy; Z79.84 Long term (current) use of oral hypoglycemic drugs; Z86.73 Personal history of transient ischemic attack (TIA), and cerebral infarction without residual deficits; X58.XXXA Exposure to other specified factors, initial encounter
CPT/HCPCS: 73030; 99282

== ENCOUNTER → 2023-12-11 | Outpatient (CLI) | payer MEDICARE, OTHER, SELFPAY ==
--- NOTE | 2023-12-11 14:45 | MRI_ITS ---
STUDY: MRI CERVICAL SPINE WITHOUT CONTRAST REASON FOR EXAM: Female, 83 years old. cervical radiculopathy, arm numbness TECHNIQUE: Standardized fat and water weighted pulse sequences were obtained in the sagittal and axial planes. COMPARISON: X-ray of the cervical spine dated November 24, 2023 FINDINGS: Normal foramen magnum and brainstem-cervical cord junction. Normal craniovertebral junction. Normal anterior atlantoaxial articulation. Normal odontoid process. There is straightening of the normal cervical lordosis. C2-3: Normal endplates. Diffuse disc desiccation with mild to moderate disc space narrowing but no significant disc herniation. Normal central canal and right neural foramen. Moderate to severe left foraminal stenosis due to combined uncovertebral facet hypertrophy. C3-4: Moderate to severe disc space narrowing with a diffuse disc bulge causing compression on anterior aspect of the cord and mild central canal stenosis. Moderate right and severe left foraminal stenosis with nerve root compression due to uncovertebral hypertrophy and significant left facet joint hypertrophy. C4-5: Moderate to severe disc space narrowing with a diffuse disc bulge causing compression on anterior aspect of the cord and mild central canal stenosis. Moderate to severe bilateral foraminal stenosis with nerve root compression due to uncovertebral facet joint hypertrophy. C5-6: Severe disc space narrowing with a diffuse disc osteophyte complex compressing the anterior aspect of cord and causing moderate central canal stenosis. Moderate ligamenta flava hypertrophy results in posterior mass effect on the cord. Severe bilateral foraminal stenosis with nerve root compression due to uncovertebral facet joint hypertrophy. C6-7: Severe disc space narrowing with a diffuse disc bulge contributing to mild central canal stenosis. Severe bilateral foraminal stenosis with nerve root compression due to uncovertebral hypertrophy. C7-T1: Normal endplates. Diffuse disc desiccation with mild disc space narrowing. Mild anterolisthesis of C7 on T1 of no more than 2 mm. Normal central canal and intervertebral neural foramina. Normal cervical cord. There is no demonstrated cervical cord syrinx cavity. Normal visualized soft tissue structures. MRI/Spine Cervical (Routine) IMPRESSION: 1. Multilevel degenerative changes, as described above. 2. 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 Electronically Signed: Nain Hoyt MD at 13:55 EDT ,
== END | disposition home or self-care (01) ==
LOC: MRI 14:10
PROVIDERS: PCP Internal Medicine; Referring Provider Internal Medicine; Visit Provider Internal Medicine
DX: M54.12 Radiculopathy, cervical region (principal)
CPT/HCPCS: 72141

== ENCOUNTER 2024-01-08 14:30 | Outpatient (RCR) | payer MEDICARE, OTHER, SELFPAY ==
--- NOTE | 2023-12-06 17:38 | HP.PTEVAL ---
Patient's Visit Information Visit Information Visit Information: ADRIANNA GRESHAM is a 83 year old F referred to Physical Therapy by Dr. Sary Schmitt DO with a diagnosis of Thoracic Radiculopathy. Date of Evaluation: 12/06/23 Physical Therapist: Mariluz Zafar DPT Visit Plan Frequency: 2x /Week Duration: 4 Weeks Plan: Scapular and Core Strength/Stabilization HEP Given: postural correction and scapular retractions Subjective Subjective: Couple of weeks ago she bent over to lift something and she had a lot of pain- and she could not sleep the next day she went to the MD- they took x-rays of her shoulder- told her she sprained her shoulder- gave her medication- she took a few days and told her 7-10 days and it was not any better. Went into see Dr. Schmitt and told her its more in the thoracic area- she thinks its more a pinched nerve. She has been scheduled for a cervical, thoracic and lumbar MRI- she has to have PT prior to approval. The pain is now in the shoulder blade and wraps into the pectoral muscle on the left. She can do all her normal activities and then a certain spot just feels like she needs to put pressure on it. She is not sleeping well- it feels okay when she lays down but then it grabs her and then it starts to burn. She then gets up and sits in her rocking chair or her recliner and sleeps that way and its better. No pain that radiates down the arm or into the neck that effects this pain. She can take Tylenol and she is unsure if that really helps or not. The more she is standing the more its irritated later. The hot water makes it feel better. PMHXx/Meds: see chart Objective Objective: Posture: forward head, rounded shoulder- can correct but is unable to maintain Gait: decreased trunk rotation Palpation: tender along medial border of the scapula, paraspinals of the thoracic and lumbar spine ROM: WFL in all planes of the UE and thoracic spine Strength: Scap: poor moderate winging, Core: poor, Shoulder: 4+/5 throughout bilateral Elbow/Wrist: 5/5 Sensation: WNL Balance/Special Test Scores Oswestry Low Back Score: 14 Goals Goal 1:: Patient will be I with HEP and progression Goal Time Frame: 4-6 Weeks Goal 2:: Patient will maintain proper posture t/o tx session to demo increased scapular s/s Goal Time Frame: 4-6 Weeks Goal 3:: Patient will report no N/T for 1 week Goal Time Frame: 4-6 Weeks Goal 4:: Patient will report 80% improvement Goal Time Frame: 4-6 Weeks Rehabilitation Potential Physical Therapy Diagnosis: Patient presents with decreased core and scapular strength/stabilization leading to poor posture and increased dural s/s Rehabilitation Potential: Fair Anticipated Interventions Patient/Client Instruction: Educate patient on: Benefits of Fitness Program Therapeutic Exercise to Include: Strength training, Endurance training, Coordination, Agility training, Body mechanics, Postural training, Flexibilty training, Neuromotor development and Scapular Strength/Stabilization For the Purpose of:: To improve muscle performance and motor function Manual Therapy Techniques to Include: Soft tissue mobilization TENS: Yes Cryotherapy (ice pack, ice massage): Yes Thermo therapy (hot pack): Yes Ultrasound (thermal/non thermal): Yes Text: Thank you for the opportunity to evaluate your patient. For Medicare and Medicare HMO plans, please review the plan of care and approve it. It will need to be FAXED BACK to us at [phone] for Medicare purposes. For Medicare only, by signing this I certify the plan of care. Please let me know if there are questions or concerns regarding this plan of care. Physician Signature: Date:
--- NOTE | 2024-01-08 15:23 | HP.PTDCSUM ---
Discharge Summary D/C summary: It has been my pleasure to treat ADRIANNA GRESHAM referred by Dr. Sary Schmitt DO, with the diagnosis of Thoracic Radiculopathy for a total of 9 visit(s). Discharge Date: Please see the following information for a summary of their discharge status. Subjective Subjective: Patient reports that the numbness is now complete gone and she is really doing great. She feels confident with the exercises and she has no concerns. Pain L SH: Pain Intensity (Out of 10): 0 thoracic: Pain Intensity (Out of 10): 0 Overall Improvement % Improvement: 100 Objective Objective/Function: Posture: forward head, rounded shoulder- can correct but is unable to maintain Gait: no deviation noted- good arm swing and trunk rotation Palpation: tender along medial border of the scapula, paraspinals of the thoracic and lumbar spine ROM: WFL in all planes of the UE and thoracic spine Strength: Scap: mild winging, Core: fair, Shoulder: 4+/5 throughout bilateral Elbow/Wrist: 5/5 Sensation: WNL Goals Goal 1:: Patient will be I with HEP and progression Goal 2:: Patient will maintain proper posture t/o tx session to demo increased scapular s/s Goal 3:: Patient will report no N/T for 1 week Goal 4:: Patient will report 80% improvement Plan Plan: 01/08/24: Discharge to home exercise program- encouraged her to call if questions arise IE:Scapular and Core Strength/Stabilization HEP Given: postural correction and scapular retractions D/C Information d/c sentence: If there are questions or concerns regarding this patient's physical therapy, please feel free to call me at [phone]. Thank you for the referral of this patient. Sincerely, Mariluz Zafar, DPT Balance/Gait/Functional tests Balance/Special Test Scores Oswestry Low Back Score: 0 Improvement % Improvement: 100
== END 2024-01-08 19:00 | disposition home or self-care (01) ==
LOC: PT 14:30
PROVIDERS: PCP Internal Medicine; Referring Provider Internal Medicine; Visit Provider Internal Medicine
DX: M54.14 Radiculopathy, thoracic region (principal)
CPT/HCPCS: 97110; 97140; 97162; 97530

== ENCOUNTER → 2024-02-22 | Outpatient (CLI) | payer MEDICARE, OTHER, SELFPAY ==
--- NOTE | 2024-02-22 13:47 | CDU_ITS ---
Reason For Study: Carotid Stenosis Rt. Velocities/BP Lt. Velocities/BP Prox CCA 50.5/12.1 cm/sec. Prox CCA 53.8/11.1 cm/sec. Mid CCA 43.3/9.9 cm/sec. Mid CCA 48.8/11.1 cm/sec. Dist CCA 41.9/9.2 cm/sec. Dist CCA 38.6/8.9 cm/sec. Prox ICA 41.7/12.0 cm/sec. Prox ICA 45.3/14.7 cm/sec. Mid ICA 63.6/18.6 cm/sec. Mid ICA 76.0/22.0 cm/sec. Dist ICA 90.0/23.0 cm/sec. Dist ICA 74.7/17.1 cm/sec. Rt. ICA/CCA = 2.1. Lt. ICA/CCA = 1.6. Prox ECA 55.7/7.8 cm/sec. Prox ECA 58.1/7.6 cm/sec. Rt. Vert. 24.0/4.3 cm/sec. Lt. Vert. 39.6/10.4 cm/sec. Right Extracranial There is intimal thickening but no significant atherosclerotic plaque noted in the right common carotid artery. There is heterogeneous, irregular atherosclerotic plaque noted in the right internal carotid artery. There is heterogeneous, irregular atherosclerotic plaque noted in the right external carotid artery. Antegrade flow is noted in the right vertebral artery. Left Extracranial There is intimal thickening but no significant atherosclerotic plaque noted in the left common carotid artery. There is heterogeneous, irregular atherosclerotic plaque noted in the left internal carotid artery. There is heterogeneous, irregular atherosclerotic plaque noted in the left external carotid artery. Antegrade flow is noted in the left vertebral artery. Procedure Carotid Duplex [id number]. This is a Carotid Duplex examination using B-mode, color flow and specral Doppler. The exam was diagnostic. Exam performed in department. VL/Carotid Duplex Ultrasound Interpretation Summary Mild (<50%) stenosis right extracranial internal carotid. Mild (<50%) stenosis left extracranial internal carotid. Patent and antegrade vertebrals bilaterally. Ordering Physician: Sary Schmitt Referring Physician: Sary Schmitt Performed By: Rosales Bolden RVT
== END | disposition home or self-care (01) ==
LOC: CVS 13:46
PROVIDERS: PCP Internal Medicine; Referring Provider Internal Medicine; Visit Provider Internal Medicine
DX: I65.23 Occlusion and stenosis of bilateral carotid arteries (principal)
CPT/HCPCS: 93880

== ENCOUNTER 2024-03-22 11:52 | Outpatient (CLI) | payer MEDICARE, OTHER, SELFPAY ==
[2024-03-22 12:20] VITALS: BP 92/57; PULSE 77; RESP 16; TEMP 36.2; O2SAT 97
[2024-03-22] MEDS: DENOSUMAB 60 MG/ML SC (12:29)
== END 2024-03-22 23:59 | disposition home or self-care (01) ==
LOC: MEDOUTP 11:53
PROVIDERS: PCP Internal Medicine; Referring Provider Internal Medicine; Visit Provider Internal Medicine
DX: M81.0 Age-related osteoporosis without current pathological fracture (principal)
CPT/HCPCS: 96372; J0897

== ENCOUNTER → 2024-07-18 | Outpatient (CLI) | payer MEDICARE, OTHER, SELFPAY ==
--- NOTE | 2024-07-18 13:20 | BI_ITS ---
PROCEDURE: SCRN MAMM (CAD)W/RASHAAD BILAT REASON FOR EXAM: F, Age 84 y/o, grandmother with breast cancer. Annual follow-up. TECHNIQUE: Bilateral screening digital breast tomosynthesis with 2D and 3D images. Computer aided detection. COMPARISON: Comparison is made with prior study dated July 11, 2023. FINDINGS: The breasts are almost entirely fatty. Stable bilateral secretory calcifications more prominent in the right breast. Stable small benign-appearing axillary lymph nodes. No suspicious masses, areas of developing architectural distortion, or suspicious calcifications. BI/SCRN MAMM (CAD)W/RASHAAD BILAT IMPRESSION: BI-RADS 2: BENIGN. RECOMMEND ANNUAL MAMMOGRAPHIC SCREENING. Follow-up code: Routine Follow-up The patient will be notified of the results by letter. Reading Location: [id number]
== END | disposition home or self-care (01) ==
LOC: OPBI 13:18
PROVIDERS: PCP Internal Medicine; Referring Provider Internal Medicine; Visit Provider Internal Medicine
DX: Z12.31 Encounter for screening mammogram for malignant neoplasm of breast (principal)
CPT/HCPCS: 77063; 77067

== ENCOUNTER 2024-09-20 10:59 | Outpatient (CLI) | payer MEDICARE, OTHER, SELFPAY ==
[2024-09-20 11:07] VITALS: BP 136/72; PULSE 86; RESP 16; TEMP 35.9; O2SAT 94; BMI 29.0
[2024-09-20] MEDS: DENOSUMAB 60 MG/ML SC (11:29)
== END 2024-09-20 23:59 | disposition home or self-care (01) ==
LOC: MEDOUTP 11:00
PROVIDERS: PCP Internal Medicine; Referring Provider Internal Medicine; Visit Provider Internal Medicine
DX: M81.0 Age-related osteoporosis without current pathological fracture (principal)
CPT/HCPCS: 96372; J0897

== ENCOUNTER 2025-03-21 11:08 | Outpatient (CLI) | payer MEDICARE, OTHER, SELFPAY ==
[2025-03-21 11:36] VITALS: BP 131/68; PULSE 70; RESP 16; TEMP 35.8; O2SAT 100; BMI 30.1
[2025-03-21] MEDS: DENOSUMAB 60 MG/ML SC (11:41)
== END 2025-03-21 23:59 | disposition home or self-care (01) ==
LOC: MEDOUTP 11:08
PROVIDERS: PCP Internal Medicine; Referring Provider Internal Medicine; Visit Provider Internal Medicine
DX: M81.0 Age-related osteoporosis without current pathological fracture (principal)
CPT/HCPCS: 96372; J0897

== ENCOUNTER → 2025-05-15 | Outpatient (CLI) | payer MEDICARE, OTHER, SELFPAY ==
--- NOTE | 2025-05-15 09:47 | BD_ITS ---
PROCEDURE: DEXA BONE DENSITY STUDY 05/15/2025 REASON FOR EXAM: F, age 84 y/o . Postmenopausal. TECHNIQUE: Procedure Code: BDDBD Modality: DX Procedure: DEXA BONE DENSITY STUDY COMPARISON: November 29, 2022. FINDINGS: BMD and T-SCORES Lumbar spine: 1.166 g/cm2, T-score 0.6 Levels: L1 through L4 Change from prior: Improvement of 1.5%. Left femoral neck: 0.647 g/cm2, T-score -1.8 Femoral neck comparison data not recommended for monitoring change. Left total hip: 0.860 g/cm2, T-score -0.7 Change from prior: Loss of 1.3%. Right femoral neck: 0.578 g/cm2, T-score -2.4 Femoral neck comparison data not recommended for monitoring change. Right total hip: 0.819 g/cm2, T-score -1.0 Change from prior: Loss of 0.7%. The World Health Organization has defined the following categories based on bone density: Normal bone density: T-score equal to or greater than -1.0 Osteopenia: T-score between -1.0 and -2.5 Osteoporosis: T-score equal to or less than -2.5 FRAX (or Comparable) Fracture Risk Assessment: 10 Year Probability of Fracture: Major Osteoporotic Fracture: 15% Hip Fracture: 5.3% (Note: FRAX is not to be reported in setting of normal range bone density, osteoporosis on DEXA, known history of osteoporosis, prior osteoporotic hip or vertebral fracture, or for any patient undergoing pharmacological treatment for bone loss.) The National Osteoporosis Foundation (NOF) recommends pharmacological treatment for patients with a FRAX 10-year risk of 3% or higher for a hip fracture, or 20% or higher for a major osteoporotic fracture, to prevent osteoporosis and reduce fracture risk. The patient does meet the pharmacological treatment recommendations for prevention of osteoporosis. BD/Dexa Bone Density Study IMPRESSION: OSTEOPENIA. Recommend follow-up as clinically warranted. Reading Location: [place] [id number]
== END | disposition home or self-care (01) ==
LOC: OPBD 09:46
PROVIDERS: PCP Internal Medicine; Referring Provider Internal Medicine; Visit Provider Internal Medicine
DX: Z78.0 Asymptomatic menopausal state (principal)
CPT/HCPCS: 77080